=== PATIENT | male | born 1950 | race Caucasian/White ===

== ENCOUNTER 2017-06-23 14:16 | Inpatient (IN) | payer OTHER ==
[2017-06-23 14:32] VITALS: BMI 28.1
--- NOTE | 2017-06-23 14:33 | PDOC ---
Rapid Medical Evaluation Chief Complaint: Pain Time Seen by Provider: 06/23/17 14:29 Medical Evaluation: Allergies Allergy/AdvReac Type Severity Reaction Status Date / Time No Known Allergies Allergy Verified 01/03/14 01:26 06/23/17 14:29 The patient presents with a chief complaint of: hiccups since Thursday. States that he has thrown up because of them and complains of chest heaviness. Admits to lightheadedness. Denies fevers, chills, flu like symptoms. I have performed a brief in-person evaluation of this patient; Pertinent physical exam findings. Hiccups. CTAB, RRR I have ordered the following: CBC, CMP, PT/INR, Cardiac Profile, EKG, CXR The patient will proceed to the ED for further evaluation. Discharge Disposition - Referrals Referrals: Bert Mayo MD [Primary Care Provider] - - Patient Instructions - Post Discharge Activity
[2017-06-23 15:16] LABS: BASO % 0.4 % (0-2.0); EOS % 0.2 % (0-4.5); HEMATOCRIT 42.3 % (35.4-49); HEMOGLOBIN 14.1 GM/dL (11.7-16.9); LYMPH % 4.7 % (8-40); MCH 31.7 pg (25.7-33.7); MCHC 33.4 g/dl (32.0-35.9); MEAN CELL VOLUME 94.9 fl (80-96); MEAN PLT VOLUME 7.6 fl (7.5-11.1); MONO % 9.3 % (3.8-10.2); NEUT % 85.4 % (42.8-82.8); PLATELET COUNT 183 K/MM3 (134-434); RBC 4.46 M/mm3 (4.00-5.60); RDW 14.8 % (11.9-15.9); WHITE BLOOD COUNT 19.8 K/mm3 (4.0-10.0)
[2017-06-23 15:35] LABS: INR 0.99 (0.82-1.09); PROTHROMBIN TIME (PATIENT) 11.2 SEC (9.98-11.88)
[2017-06-23 15:42] LABS: ALBUMIN 3.4 g/dl (3.4-5.0); ALK PHOS 82 U/L (45-117); ANION GAP 10 (8-16); BLOOD UREA NITROGEN 45 mg/dL (7-18); CALCIUM 8.7 mg/dL (8.5-10.1); CHLORIDE 102 mmol/L (98-107); CO2 29 mmol/L (21-32); CREATININE 2.6 mg/dL (0.7-1.3); GLUCOSE,RANDOM 137 mg/dL (74-106); POTASSIUM 3.5 mmol/L (3.5-5.1); SGOT/AST 9 U/L (15-37); SGPT/ALT 14 U/L (12-78); SODIUM 141 mmol/L (136-145); TOT PROT 6.7 g/dl (6.4-8.2)
--- NOTE | 2017-06-23 17:36 | PDOC ---
History of Present Illness - General Chief Complaint: Pain Stated Complaint: Cold Symptoms/SICK/hiccups since Sat Time Seen by Provider: 06/23/17 14:29 - History of Present Illness Initial Comments: 06/23/17 17:29 Pt is a 66 y/o M with PMH BPH, HTN, [place] w/ stents 10 years ago, renal aneurysm s/ p surg 2 years ago (Dr. Rendon) who presents to ED with persistent hiccups since Thursday. Pt states he gets bouts of hiccups lasting up to an hour each every 30 min-1hr. Pt states he's never had this before. Pt has also had decreased appetite since the hiccups began and has had decreased BM (Per pt, he normally has 2-3 BM/day and has not moved his bowels since Sat). ROS otherwise negative. Past History - Past Medical History Allergies/Adverse Reactions: Allergies Allergy/AdvReac Type Severity Reaction Status Date / Time tetracycline Allergy Severe Swelling Verified 06/25/17 13:29 Home Medications: Ambulatory Orders Tamsulosin HCl [Flomax] 0.4 mg PO DAILY 01/03/14 Amlodipine Besylate [Norvasc -] 10 mg PO DAILY 06/23/17 Atenolol [Tenormin -] 37.5 mg PO DAILY 06/23/17 Atorvastatin Ca [Lipitor] 40 mg PO HS 06/23/17 Finasteride [Proscar -] 5 mg PO DAILY 06/23/17 Folic Acid - 1 mg PO DAILY 06/23/17 Sodium Bicarbonate - 650 mg PO DAILY 06/23/17 Cardiac Disorders: Yes (CAD) COPD: No Disorders: Yes (BPH) HTN: Yes Hypercholesterolemia: Yes - Surgical History Cardiac Surgery: Yes (stent) - Suicide/Smoking/Psychosocial Hx Smoking History: Never smoked Have you smoked in the past 12 months: Yes Information on smoking cessation initiated: No Hx Alcohol Use: No Drug/Substance Use Hx: No Substance Use Type: None Review of Systems - Review of Systems Able to Perform ROS?: Yes Is the patient limited Zimbabwean proficient: No Constitutional: Yes: Symptoms Reported. No: Chills, Diaphoresis, Fever HEENTM: Yes: Symptoms Reported. No: Double Vision, Nose Congestion, Hearing Loss, Throat Pain Respiratory: Yes: Symptoms reported, Other (hiccups). No: Cough, Shortness of Breath, Productive cough Cardiac (ROS): Yes: Symptoms Reported. No: Chest Pain, Edema, Irregular Heart Rate ABD/GI: Yes: Symptoms Reported, Vomiting (signle episode of vomiting occuring with hiccups). No: Abdominal Distended, Abd. Pain w/ defecation, Diarrhea, Nausea, Poor Appetite, Poor Fluid Intake : Yes: Symptoms Reported. No: Burning, Dysuria *Physical Exam - Vital Signs Last Vital Signs Temp Pulse Resp BP Pulse Ox 99.1 F 61 18 143/78 96 06/23/17 14:28 06/23/17 14:28 06/23/17 14:28 06/23/17 14:28 06/23/17 14:28 - Physical Exam General Appearance: Yes: Appropriately Dressed. No: Apparent Distress HEENT: positive: EOMI, JAME, Normal ENT Inspection Neck: positive: Supple. negative: Tender, Lymphadenopathy (R), Lymphadenopathy (L) Respiratory/Chest: positive: Lungs Clear, Normal Breath Sounds. negative: Chest Tender Cardiovascular: positive: Regular Rhythm, Regular Rate, S1, S2 Gastrointestinal/Abdominal: positive: Normal Bowel Sounds, Hernia (ventral hernia at suture line). negative: Tender Extremity: positive: Normal Inspection ED Treatment Course - LABORATORY CBC & Chemistry Diagram: 06/27/17 12:15 06/27/17 12:15 - ADDITIONAL ORDERS Additional order review: Laboratory Results 06/23/17 06/23/17 06/23/17 14:52 14:52 14:52 PT with INR 11.20 INR 0.99 Sodium 141 Potassium 3.5 Chloride 102 Carbon Dioxide 29 Anion Gap 10 BUN 45 H D Creatinine 2.6 H D Creat Clearance w eGFR 24.67 Random Glucose 137 H Calcium 8.7 Total Bilirubin 1.0 D AST 9 L D ALT 14 D Alkaline Phosphatase 82 Creatine Kinase 89 Troponin I 0.02 Total Protein 6.7 Albumin 3.4 06/23/17 14:52 RBC 4.46 D MCV 94.9 MCHC 33.4 RDW 14.8 MPV 7.6 D Neutrophils % 85.4 H D Lymphocytes % 4.7 L D Monocytes % 9.3 Eosinophils % 0.2 D Basophils % 0.4 Medical Decision Making - Medical Decision Making 06/23/17 17:40 Pt is a 66 y/o M who presents to ED with 2 days of intractable hiccups. Plan -Chlorpromazine *DC/Admit/Observation/Transfer Diagnosis at time of Disposition: Intractable hiccups, Pneumonia - Discharge Dispostion Condition at time of disposition: Stable - Referrals - Patient Instructions - Post Discharge Activity
--- NOTE | 2017-06-23 19:09 | PDOC ---
Attending Attestation - Resident Resident Name: Marshall Daigle - ED Attending Attestation I have performed the following: I have examined & evaluated the patient, The case was reviewed & discussed with the resident, I agree w/resident's findings & plan, Exceptions are as noted - HPI HPI: 06/23/17 20:43 Patient is a 66 year old male with a significant past medical history of HTN, BPH, DC, CAD s/p stent 10yrs ago, Hypercholesterolemia, and Renal Aneurysm s/p repair 2 years ago, who presents to the ED with complaints of persistent hiccups since thursday afternoon. Patient reports experience sudden onset of hiccups that he states lasts up to an hour at a time before relieving for 30 minutes. Patient states he has been experiencing decrease in appetite secondary to hiccups. and has rece Denies chest pain, SOB. Denies fevers, chills. Denies nausea, vomiting. Denies contact with sick individuals, out of state traveling. Denies any other symptoms. Allergies: None Social history: Former Smoker. Social drinker (1 beer per day). No illicit drugs. Surgical history: Cataracts, Cardiac Stent (10 years ago) PMD: Dr. Bert Mayo - Physicial Exam PE: 06/23/17 20:48 GENERAL: Awake, alert, and fully oriented, in no acute distress. Frequent hiccups. HEAD: No signs of trauma EYES: PERRLA, EOMI, sclera anicteric, conjunctiva clear ENT: Auricles normal inspection, hearing grossly normal, nares patent, oropharynx clear without exudates. Moist mucosa NECK: Normal ROM, supple, no lymphadenopathy, JVD, or masses LUNGS: Breath sounds equal, clear to auscultation bilaterally. No wheezes, and no crackles HEART: Regular rate and rhythm, normal S1 and S2, no murmurs, rubs or gallops ABDOMEN: Soft, nontender, normoactive bowel sounds. No guarding, no rebound. No masses EXTREMITIES: Normal range of motion, no edema. No clubbing or cyanosis. No cords, erythema, or tenderness NEUROLOGICAL: Normal speech, cranial nerves intact, negative pronator drift, 5/ 5 strength in all 4 extremities, normal sensation to light touch in all 4 extremities, normal cerebellar exam, normal gait, normal reflexes and tone SKIN: Warm, Dry, normal turgor, no rashes or lesions noted. - Medical Decision Making 06/23/17 20:49 66-year-old male with multiple medical problems including CAD with stents presents with hiccuping for 3 days as well as decreased appetite and transient lightheadedness. Patient initially reported chest pressure to the nurse practitioner in [facility], however currently denies. Vitals are unremarkable. Exam is unremarkable other than patient with frequent hiccuping. EKG with some concerning changes including a new bifascicular block. Differential includes but is not limited to acute coronary syndrome versus CHF versus pneumonia versus GERD. Labs remarkable for leukocytosis to 20, and a MANJULA with creatinine of 2.6 (from 2.1). Chest x-ray was unremarkable however CT of the chest reveals a lingular infiltrate, which possibly explains a leukocytosis and may explain the hiccups. BNP elevated to the 3000 range and therefore there might be some element of CHF. Given the infiltrate, and transient lightheadedness and chest pressure along with the patient's medical history, I recommended admission for observation. The patient is hesitant to be admitted since we do not have any beds to admit patient's to currently and that he would likely have to stay in the emergency department for at least several hours prior to getting a bed. For this reason, the patient does not want to be admitted. I told him that in this situation we will likely have to sign him out AGAINST MEDICAL ADVICE but that I would call his PMD Dr. Mayo and in the meantime give him a dose of IV antibiotics and check a second troponin. The patient agrees to stay for these studies and will decide whether he is willing to stay for an observation admission in the meantime. Patient has been signed out to Dr. Palmer for further evaluation and disposition. Heart Score/ECG Review - History History: Slightly suspicious - Electrocardiogram EKG: Non specific repolarization disturbance - Age Age: >/= 65 - Risk Factors Based on the list above the patient has:: >/=3 risk factors or Hx atherosclerotic disease - Troponin Troponin: </= normal limit - Score Heart Score - Total: 5 #1 06/23/17 21:03 Twelve-lead EKG was performed and reviewed by me. Normal sinus rhythm, rate 63. Left axis deviation. Right bundle branch block and left anterior fascicular block. Compared to previous EKG from 01/03/2014, the anterior fascicular block is new.
[2017-06-23] MEDS ORDERED: CEFTRIAXONE 1 GM in DEXTROSE 5%-WATER - 50 ML IVPB ONE (20:40)
[2017-06-23] MEDS ORDERED: AZITHROMYCIN IVPB 500 MG in DEXTROSE 5%-WATER - 250 ML IVPB ONE (20:40)
[2017-06-23] MEDS ORDERED: AZITHROMYCIN IVPB 250 ML IVPB ONE (21:10)
[2017-06-23] MEDS ORDERED: CEFTRIAXONE 1 GM/50 ML BAG ONE (21:11)
--- NOTE | 2017-06-24 02:58 | HP ---
CHIEF COMPLAINT: hiccups x 4 days PCP: Dr. Yasmany Mayo HISTORY OF PRESENT ILLNESS: 66 y/o M with PMHx HTN, HLD, BPH, [place] s/p stentx1, renal aneurysm s/p surgery, presented to ED with 4 days hx of intractable hiccups. He states he did not do anything to alleviate the hiccups. He also c/o decreased PO intake for last 4 days, associated with n/v. He states he vomits up both food and liquids but has not noticed any blood or dark coffee grounds in his vomit. He states he was light headed this morning but never fainted. He is able to ambulate on his own. He also has had dry cough for past 4 days. He denies any blurry vision, sore throat, chest pain, SOB, palpitations, dyspnea , orthopnea, abdominal pain. He has chronic nasal congestion and morning post nasal drip. He states his girlfriend was recently ill with a cold. He states he has had some intermittent chills but denies fever. He has been vaccinated for flu this year but has never received pneumonococcal vaccine. He reported weight change, 30 lb since quitting smoking 2 years ago. ER course was notable for: (1) CXR - no acute pathology (2)CT chest - lingula infiltrate (3) Ceftriaxone, Azithromycin (4) WBC 19.8 (5) BUN/Cr 45/2.6 (baseline Cr 2.1) Recent Travel: denies PAST MEDICAL HISTORY: HTN, HLD, BPH, [place] s/p stentx1, renal aneurysm s/p surgery PAST SURGICAL HISTORY: [place] s/p stent x1, u/l cataract surgery Social History: Smokin pack year (52 years, 1 ppd); quit 2 years ago Alcohol: socially in past; increased EtOH intake to 1-2 beers daily in past 8 mo. Drugs: Marijuana as kid; denies current use. Family History: Mom - at age 72 from [place]; Dad - at age 70, lung ca with mets to brain; Sister - kidney dz. Allergies Pt is allergic to tetramycin -- body swelling Allergic to shrimp HOME MEDICATIONS: Home Medications Medication Instructions Recorded Tamsulosin HCl [Flomax] 0.4 mg PO DAILY 01/03/14 Amlodipine Besylate [Norvasc -] 10 mg PO DAILY 06/23/17 Atenolol [Tenormin -] 37.5 mg PO DAILY 06/23/17 Atorvastatin Ca [Lipitor] 40 mg PO HS 06/23/17 Finasteride [Proscar -] 5 mg PO DAILY 06/23/17 Folic Acid - 1 mg PO DAILY 06/23/17 Sodium Bicarbonate - 650 mg PO DAILY 06/23/17 REVIEW OF SYSTEMS CONSTITUTIONAL: Absent: fever, chills, diaphoresis, generalized weakness, malaise, loss of appetite, weight change HEENT: Absent: rhinorrhea, nasal congestion, throat pain, throat swelling, difficulty swallowing, mouth swelling, ear pain, eye pain, visual changes CARDIOVASCULAR: Absent: chest pain, syncope, palpitations, irregular heart rate, lightheadedness , peripheral edema RESPIRATORY: Absent: cough, shortness of breath, dyspnea with exertion, orthopnea, wheezing, stridor, hemoptysis GASTROINTESTINAL: Absent: abdominal pain, abdominal distension, nausea, vomiting, diarrhea, constipation, melena, hematochezia GENITOURINARY: Absent: dysuria, frequency, urgency, hesitancy, hematuria, flank pain, genital pain MUSCULOSKELETAL: Absent: myalgia, arthralgia, joint swelling, back pain, neck pain SKIN: Absent: rash, itching, pallor HEMATOLOGIC/IMMUNOLOGIC: Absent: easy bleeding, easy bruising, lymphadenopathy, frequent infections ENDOCRINE: Absent: unexplained weight gain, unexplained weight loss, heat intolerance, cold intolerance NEUROLOGIC: Absent: headache, focal weakness or paresthesias, dizziness, unsteady gait, seizure, mental status changes, bladder or bowel incontinence PSYCHIATRIC: Absent: anxiety, depression, suicidal or homicidal ideation, hallucinations. PHYSICAL EXAMINATION Vital Signs - 24 hr 06/23/17 14:28 Temperature 99.1 F Pulse Rate 61 Respiratory 18 Rate Blood Pressure 143/78 O2 Sat by Pulse 96 Oximetry (%) GENERAL: Awake, alert, and fully oriented, in no acute distress. HEAD: Normal with no signs of trauma. EYES: Pupils equal, round and reactive to light, extraocular movements intact, sclera anicteric, conjunctiva clear. No lid lag. EARS, NOSE, THROAT: Ears normal, nares patent, oropharynx clear without exudates. Moist mucous membranes. NECK: Normal range of motion, supple without lymphadenopathy, JVD, or masses. LUNGS: Breath sounds equal, some crackles heard at R base. No accessory muscle use. HEART: Regular rate and rhythm, normal S1 and S2 without murmur, rub or gallop. Distant heart sounds. ABDOMEN: Soft, nontender, distended, normoactive bowel sounds, no guarding, no rebound, no masses. MUSCULOSKELETAL: Normal range of motion at all joints. No bony deformities or tenderness. UPPER EXTREMITIES: 2+ pulses, warm, well-perfused. No cyanosis. No clubbing. No peripheral edema. LOWER EXTREMITIES: 2+ pulses, warm, well-perfused. No calf tenderness. L leg edema +2. PSYCHIATRIC: Cooperative. Good eye contact. Appropriate mood and affect. SKIN: Warm, dry, normal turgor, no rashes or lesions noted, normal capillary refill. Laboratory Results - last 24 hr 06/23/17 06/23/17 06/23/17 14:52 14:52 14:52 WBC 19.8 H D RBC 4.46 D Hgb 14.1 D Hct 42.3 D MCV 94.9 MCH 31.7 D MCHC 33.4 RDW 14.8 Plt Count 183 D MPV 7.6 D Neutrophils % 85.4 H D Lymphocytes % 4.7 L D Monocytes % 9.3 Eosinophils % 0.2 D Basophils % 0.4 PT with INR 11.20 INR 0.99 Sodium 141 Potassium 3.5 Chloride 102 Carbon Dioxide 29 Anion Gap 10 BUN 45 H D Creatinine 2.6 H D Creat Clearance w eGFR 24.67 Random Glucose 137 H Calcium 8.7 Total Bilirubin 1.0 D AST 9 L D ALT 14 D Alkaline Phosphatase 82 Creatine Kinase Troponin I B-Natriuretic Peptide Total Protein 6.7 Albumin 3.4 06/23/17 06/23/17 06/23/17 14:52 18:45 21:48 WBC RBC Hgb Hct MCV MCH MCHC RDW Plt Count MPV Neutrophils % Lymphocytes % Monocytes % Eosinophils % Basophils % PT with INR INR Sodium Potassium Chloride Carbon Dioxide Anion Gap BUN Creatinine Creat Clearance w eGFR Random Glucose Calcium Total Bilirubin AST ALT Alkaline Phosphatase Creatine Kinase 89 Troponin I 0.02 0.02 B-Natriuretic Peptide 3096.25 H Total Protein Albumin CBC, [facility] 06/23/17 14:52 06/23/17 14:52 EKG:NSR bifasicular block QTC 433 CT CHEST- Lingular infilterate, mild fluid filled distension at level of thoracic esophagus, due to reflux vs. gastroparesis or gastric outlet obstruction ASSESSMENT/PLAN: 66 y/o M with PMHx HTN, HLD, BPH, [place] s/p stentx1, renal aneurysm s/p surgery, presented to ED with 4 days hx of intractable hiccups. Pt found to have lingual infiltrate and admitted to obs for CAP. # CAP Pneumonia * WBC 19.000 * CXR negative * CT chest lingual infiltrate * Ceftriaxone , Azithromycin in ED * continue Azithromycin 500 mg daily , ceftriaxone 1 gm daily * Urine legionella AG * Influenza A,B swap positive for A, start oseltamivir * repeat CBC, CMP * Chlorpromazine for intractable hiccups * Respiratory isolation precautions # Intractable Hiccup , * Likely 2/2 CAP * start on chlorpromazine * #Influenza A + * Tamiflu 30 qd renally doses # MANJULA on CKD * BUN/Cr 45/2.6 (base line 2.1 ) * IV fluids 250 NS bolus * Urine lytes * Avoid nephrotoxic agents * Trend BUN/Cr # HTN * controlled * continue home meds Norvasc 10 daily , Atenolol # HLD * Continue Lipitor 40 mg PO daily #BPH * continue home meds * Flomax 0.4 po daily , * # Urinary retention * continue Finasteride 5 mg PO daily #FEN * F: NS 250 bolus * E: MANJULA , monitor * N: low sodium low fat diet # Proph * DVT : SCDS , heparin 5000 Q8hr , Echo to R/O DVT # Dispo * Admit to obs * Full code Visit type - Emergency Visit Emergency Visit: Yes ED Registration Date: 06/24/17 Care time: The patient presented to the Emergency Department on the above date and was hospitalized for further evaluation of their emergent condition. - New Patient This patient is new to me today: Yes Date on this admission: 06/24/17 - Critical Care Critical Care patient: No
--- NOTE | 2017-06-24 03:09 | PDOC ---
*Physical Exam - Vital Signs Last Vital Signs Temp Pulse Resp BP Pulse Ox 99.1 F 61 18 143/78 96 06/23/17 14:28 06/23/17 14:28 06/23/17 14:28 06/23/17 14:28 06/23/17 14:28 ED Treatment Course - LABORATORY CBC & Chemistry Diagram: 06/23/17 14:52 06/23/17 14:52 - ADDITIONAL ORDERS Additional order review: Laboratory Results 06/23/17 06/23/17 06/23/17 21:48 18:45 14:52 PT with INR INR Sodium Potassium Chloride Carbon Dioxide Anion Gap BUN Creatinine Creat Clearance w eGFR Random Glucose Calcium Total Bilirubin AST ALT Alkaline Phosphatase Creatine Kinase 89 Troponin I 0.02 0.02 B-Natriuretic Peptide 3096.25 H Total Protein Albumin 06/23/17 06/23/17 14:52 14:52 PT with INR 11.20 INR 0.99 Sodium 141 Potassium 3.5 Chloride 102 Carbon Dioxide 29 Anion Gap 10 BUN 45 H D Creatinine 2.6 H D Creat Clearance w eGFR 24.67 Random Glucose 137 H Calcium 8.7 Total Bilirubin 1.0 D AST 9 L D ALT 14 D Alkaline Phosphatase 82 Creatine Kinase Troponin I B-Natriuretic Peptide Total Protein 6.7 Albumin 3.4 06/23/17 14:52 RBC 4.46 D MCV 94.9 MCHC 33.4 RDW 14.8 MPV 7.6 D Neutrophils % 85.4 H D Lymphocytes % 4.7 L D Monocytes % 9.3 Eosinophils % 0.2 D Basophils % 0.4 - Medications Given in the ED: ED Medications Discontinued Medications Generic Name Dose Route Start Last Admin Trade Name Antonietta PRN Reason Stop Dose Admin Azithromycin 500 mg/ Dextrose 250 mls @ 250 mls/hr 06/23/17 20:40 06/23/17 22 :41 IVPB 06/23/17 21:39 250 mls/hr ONCE ONE Administration Ceftriaxone Sodium 1 gm/ 50 mls @ 100 mls/hr 06/23/17 20:40 06/23/17 21:36 Dextrose IVPB 06/23/17 21:09 100 mls/hr ONCE ONE Administration Medical Decision Making - Medical Decision Making 06/24/17 03:11 Pt still having hiccups despite treatment of pneumonia. Will admit to [facility] Obs *DC/Admit/Observation/Transfer Diagnosis at time of Disposition: Intractable hiccups Pneumonia Qualifiers: Laterality: left Lung location: lower lobe of lung - Discharge Dispostion Condition at time of disposition: Stable Admit: Yes - Referrals Referrals: Bert Mayo MD [Primary Care Provider] - - Patient Instructions - Post Discharge Activity
[2017-06-24] MEDS ORDERED: chlorproMAZINE HCL 25 MG TABLET PO STA (03:10)
--- NOTE | 2017-06-24 03:52 | PN ---
Teaching Attending Note Name of Resident: Luis Gunn ATTENDING PHYSICIAN STATEMENT I saw and evaluated the patient. I reviewed the resident's note and discussed the case with the resident. I agree with the resident's findings and plan as documented. SUBJECTIVE: 66 M with pmhx. of HTN, BPH, [place], CAD s/p Stent 10 years ago, HLD, CKD, with renal aneurysm s/p repair 2 years ago, who presents with hiccups since Thursday. States that hiccups have been consistant. Notes he has had a decreased appetite secondary to hiccups. No fevers or chills. No chest pain or pressure. No nausea, vomiting, or diarrhea. OBJECTIVE: PHYSICAL: VS: Vital Signs Period Temp Pulse Resp BP Sys/Juan Pulse Ox Last 24 Hr 99.1 F 61 18 143/78 96 GEN: NAD, resting in bed, AA0X3 HEENT: NCAT, PERRL, throat without erythema or exudates CARD: RRR S1, S2 RESP: Crackles L. base ABD: BSx3, NTD to palpation EXT: LLE +2 Pitting edema CBCD WBC 19.8 K/mm3 (4.0-10.0) H D 06/23/17 14:52 RBC 4.46 M/mm3 (4.00-5.60) D 06/23/17 14:52 Hgb 14.1 GM/dL (11.7-16.9) D 06/23/17 14:52 Hct 42.3 % (35.4-49) D 06/23/17 14:52 MCV 94.9 fl (80-96) 06/23/17 14:52 MCHC 33.4 g/dl (32.0-35.9) 06/23/17 14:52 RDW 14.8 % (11.9-15.9) 06/23/17 14:52 Plt Count 183 K/MM3 (134-434) D 06/23/17 14:52 MPV 7.6 fl (7.5-11.1) D 06/23/17 14:52 CMP Sodium 141 mmol/L (136-145) 06/23/17 14:52 Potassium 3.5 mmol/L (3.5-5.1) 06/23/17 14:52 Chloride 102 mmol/L (98-107) 06/23/17 14:52 Carbon Dioxide 29 mmol/L (21-32) 06/23/17 14:52 Anion Gap 10 (8-16) 06/23/17 14:52 BUN 45 mg/dL (7-18) H D 06/23/17 14:52 Creatinine 2.6 mg/dL (0.7-1.3) H D 06/23/17 14:52 Creat Clearance w eGFR 24.67 (>60) 06/23/17 14:52 Random Glucose 137 mg/dL (74-106) H 06/23/17 14:52 Calcium 8.7 mg/dL (8.5-10.1) 06/23/17 14:52 Total Bilirubin 1.0 mg/dL (0.2-1.0) D 06/23/17 14:52 AST 9 U/L (15-37) L D 06/23/17 14:52 ALT 14 U/L (12-78) D 06/23/17 14:52 Alkaline Phosphatase 82 U/L (45-117) 06/23/17 14:52 Total Protein 6.7 g/dl (6.4-8.2) 06/23/17 14:52 Albumin 3.4 g/dl (3.4-5.0) 06/23/17 14:52 CARDIAC ENZYMES Creatine Kinase 89 IU/L (39-308) 06/23/17 14:52 Troponin I 0.02 ng/ml (0.00-0.05) 06/23/17 21:48 Ambulatory Orders Tamsulosin HCl [Flomax] 0.4 mg PO DAILY 01/03/14 Amlodipine Besylate [Norvasc -] 10 mg PO DAILY 06/23/17 Atenolol [Tenormin -] 37.5 mg PO DAILY 06/23/17 Atorvastatin Ca [Lipitor] 40 mg PO HS 06/23/17 Finasteride [Proscar -] 5 mg PO DAILY 06/23/17 Folic Acid - 1 mg PO DAILY 06/23/17 Sodium Bicarbonate - 650 mg PO DAILY 06/23/17 EKG:NSR bifasicular block QTC 433 CT CHEST- Lingular infilterate, mild fluid filled distension at level of thoracic esophagus, due to reflux vs. gastroparesis or gastric outlet obstruction ASSESSMENT AND PLAN: 66 M with pmhx. of HTN, BPH, [place], CAD s/p Stent 10 years ago, HLD, CKD, with renal aneurysm s/p repair 2 years ago, who presents with intractable hiccups, being admitted for a community aquired pneumonia 1.) Intractable Hiccups - Most likley due to Community Aquired Pneumonia - Ceftriaxone/Azithromycin - Urine Ags - Chlorpromazine for hiccups 2.) Influenza A + - Tamiflu 30 qd renally doses 2.) ARF/CKD- Unknown recent baseline - U Lytes - If Pre-renal, fluid challenge - Avoid Nephrotoxins 3.) CAD - Unsure of why pt. is not on ASA - C/W Home meds 4.) HLD - C/W Statin 5.) Dvt Ppx - Heparin [address] in Obs
[2017-06-24] MEDS ORDERED: SODIUM CHLORIDE 250 ML IV STA (04:02)
[2017-06-24] MEDS ORDERED: OSELTAMIVIR PHOSPHATE 75 MG CAPSULE PO ONE (04:49)
[2017-06-24] MEDS ORDERED: OSELTAMIVIR PHOSPHATE 75 MG CAPSULE ONE (04:55)
[2017-06-24] MEDS: OSELTAMIVIR PHOSPHATE 30 MG CAPSULE PO ONE ×3 (04:59→05:13)
[2017-06-24] MEDS ORDERED: HEPARIN NA (PORCINE) 5,000 UNITS/ML 1ML VIAL ONE ×2 (06:14→23:08)
[2017-06-24] MEDS: HEPARIN NA (PORCINE) 5,000 UNITS/ML 1ML VIAL SQ SCH ×3 (06:24→23:09)
[2017-06-24] MEDS: TAMSULOSIN HCL 0.4 MG CAP.ER.24H (FP) PO SCH (09:14)
[2017-06-24] MEDS ORDERED: TAMSULOSIN HCL 0.4 MG CAP.ER.24H (FP) ONE (09:14)
--- NOTE | 2017-06-24 09:29 | EKG ---
Test Reason : Blood Pressure : / mmHG Vent. Rate : 063 BPM Atrial Rate : 063 BPM P-R Int : 128 ms QRS Dur : 140 ms QT Int : 424 ms P-R-T Axes : 028 -48 092 degrees QTc Int : 433 ms NORMAL SINUS RHYTHM RIGHT BUNDLE BRANCH BLOCK LEFT ANTERIOR FASCICULAR BLOCK BIFASCICULAR BLOCK VOLTAGE CRITERIA FOR LEFT VENTRICULAR HYPERTROPHY ABNORMAL ECG WHEN COMPARED WITH ECG OF 03-JAN-2014 01:38, PREMATURE ATRIAL COMPLEXES ARE NO LONGER PRESENT T WAVE INVERSION LESS EVIDENT IN ANTEROLATERAL LEADS Confirmed by TYRA DONNELLY, TALHA ([id number]) on 06/24/2017 9:28:59 AM Referred By: Confirmed By:TALHA MARY MD
[2017-06-24 09:43] LABS: BASO % 0.5 % (0-2.0); EOS % 0.1 % (0-4.5); HEMATOCRIT 46.4 % (35.4-49); HEMOGLOBIN 15.1 GM/dL (11.7-16.9); LYMPH % 4.2 % (8-40); MCH 31.1 pg (25.7-33.7); MCHC 32.6 g/dl (32.0-35.9); MEAN CELL VOLUME 95.6 fl (80-96); MEAN PLT VOLUME 7.3 fl (7.5-11.1); MONO % 10.7 % (3.8-10.2); NEUT % 84.5 % (42.8-82.8); PLATELET COUNT 185 K/MM3 (134-434); RBC 4.86 M/mm3 (4.00-5.60); RDW 14.8 % (11.9-15.9); WHITE BLOOD COUNT 19.1 K/mm3 (4.0-10.0)
[2017-06-24] MEDS ORDERED: AZITHROMYCIN IVPB 500 MG in DEXTROSE 5%-WATER - 250 ML IVPB SCH (10:00)
[2017-06-24] MEDS ORDERED: amLODIPine BESYLATE 10 MG TABLET (FP) PO SCH (10:00)
[2017-06-24] MEDS ORDERED: CEFTRIAXONE 1 GM in DEXTROSE 5%-WATER - 50 ML IVPB SCH (10:00)
[2017-06-24 10:18] LABS: ALBUMIN 3.4 g/dl (3.4-5.0); ANION GAP 10 (8-16); BILIRUBIN,TOTAL 1.7 mg/dL (0.2-1.0); BLOOD UREA NITROGEN 51 mg/dL (7-18); CALCIUM 8.5 mg/dL (8.5-10.1); CHLORIDE 98 mmol/L (98-107); CO2 31 mmol/L (21-32); GLUCOSE,RANDOM 151 mg/dL (74-106); POTASSIUM 3.2 mmol/L (3.5-5.1); SGOT/AST 8 U/L (15-37); SGPT/ALT 13 U/L (12-78); SODIUM 139 mmol/L (136-145); TOT PROT 6.8 g/dl (6.4-8.2)
[2017-06-24 10:19] LABS: ALK PHOS 79 U/L (45-117)
[2017-06-24] MEDS: FINASTERIDE 5 MG TABLET (FP) PO SCH (10:35)
[2017-06-24] MEDS: ATENOLOL 25 MG TABLET (FP) PO SCH (10:35)
[2017-06-24] MEDS: amLODIPine BESYLATE 10 MG TABLET (FP) PO SCH (10:35)
[2017-06-24] MEDS: SODIUM BICARBONATE 650 MG TABLET PO SCH (10:35)
[2017-06-24] MEDS: FOLIC ACID 1 MG TABLET (FP) PO SCH (10:35)
[2017-06-24] MEDS ORDERED: POTASSIUM CHLORIDE TABS 20 MEQ TABLET.ER (FP) PO ONE ×4 (13:29→23:01)
[2017-06-24] MEDS ORDERED: SODIUM CHLORIDE 1,000 ML IV SCH (14:00)
[2017-06-24] MEDS ORDERED: PANTOPRAZOLE 40 MG TABLET (FP) ONE (15:09)
[2017-06-24] MEDS: PANTOPRAZOLE 40 MG TABLET (FP) PO SCH (15:24)
--- NOTE | 2017-06-24 16:13 | PN ---
Teaching Attending Note Name of Resident: Keith Ferris ATTENDING PHYSICIAN STATEMENT I saw and evaluated the patient. I reviewed the resident's note and discussed the case with the resident. I agree with the resident's findings and plan as documented. SUBJECTIVE: No fever or chills , still has the Hiccups . no SOB, reprots green sputum and cough t OBJECTIVE: NAD CV: RRR Lungs: CTAB Ext: no edema Lungs: crackles at middle L lung ASSESSMENT AND PLAN: 66 y/o man with h/o HTN, HLD, BPH, CAD s/p [place] s/p stentx1, renal aneurysm s/p surgery who presented with Hiccups, SOB, cough and sputum production and was found to have CAP and Flu A 1- Flu A : cont tamiflu 30 daily x 5 days . dose adjusted for renal function 2- CAP : - cont Azithro and ceftriaxone . - send blood cx and sputum cx - if condition worsens , then might need to add staph coverage 3- MANJULA on CKD : likely due to prerenal azotemia in setting of decreased po intake , and vomiting. cr was 2.1 in 2014 - start IVF - renal US - urine electrolytes. 4- Hiccups: likely due to distended stomach and esophagus . etiology of distention is not clear. - GI consult - add PPI 5- DVT PX
[2017-06-24] MEDS ORDERED: ONDANSETRON 4 MG/2 ML VIAL IVPB ONE (16:15)
--- NOTE | 2017-06-24 17:45 | PN ---
Physical Exam: SUBJECTIVE: Patient seen and examined No acute events overnight. Pt reports persistent hiccups and painful heartburn. He endorses one episode of emesis after a series of hiccups. He denies fevers, chills, chest pain, SOB, abdominal pain, nausea, diarrhea, constipation, and dysuria. OBJECTIVE: Vital Signs Period Temp Pulse Resp BP Sys/Juan Pulse Ox Last 24 Hr 99.2 F 72-80 16-20 123-136/75-77 92-98 GENERAL: The patient is awake, alert, and fully oriented, in no acute distress. HEENT: NC, AT NECK: Trachea midline, full range of motion, supple. LUNGS: left sided rales at mid-lung HEART: Regular rate and rhythm, S1, S2 without murmur, rub or gallop. ABDOMEN: midline scar, obese abdomen, normoactive BS, soft, NT EXTREMITIES: 2+ pulses, warm, well-perfused, no edema. NEUROLOGICAL: Cranial nerves II through XII grossly intact. Normal speech, gait not observed. Laboratory Results - last 24 hr 06/23/17 06/23/17 06/24/17 18:45 21:48 09:38 WBC 19.1 H RBC 4.86 Hgb 15.1 Hct 46.4 MCV 95.6 MCH 31.1 MCHC 32.6 RDW 14.8 Plt Count 185 MPV 7.3 L Neutrophils % 84.5 H Lymphocytes % 4.2 L Monocytes % 10.7 H Eosinophils % 0.1 Basophils % 0.5 Sodium Potassium Chloride Carbon Dioxide Anion Gap BUN Creatinine Creat Clearance w eGFR Random Glucose Calcium Total Bilirubin AST ALT Alkaline Phosphatase Troponin I 0.02 B-Natriuretic Peptide 3096.25 H Total Protein Albumin 06/24/17 09:38 WBC RBC Hgb Hct MCV MCH MCHC RDW Plt Count MPV Neutrophils % Lymphocytes % Monocytes % Eosinophils % Basophils % Sodium 139 Potassium 3.2 L Chloride 98 Carbon Dioxide 31 Anion Gap 10 BUN 51 H Creatinine 3.0 H Creat Clearance w eGFR 20.91 Random Glucose 151 H Calcium 8.5 Total Bilirubin 1.7 H D AST 8 L ALT 13 Alkaline Phosphatase 79 Troponin I B-Natriuretic Peptide Total Protein 6.8 Albumin 3.4 Active Medications Generic Name Dose Route Start Last Admin Trade Name Freq PRN Reason Stop Dose Admin Amlodipine Besylate 10 mg 06/24/17 10:00 06/24/17 10:35 Norvasc - PO 10 mg DAILY DAVID Administration Atenolol 37.5 mg 06/24/17 10:00 06/24/17 10:35 Tenormin - PO 37.5 mg DAILY DAVID Administration Atorvastatin Calcium 40 mg 06/24/17 22:00 Lipitor - PO HS DAVID Finasteride 5 mg 06/24/17 10:00 06/24/17 10:35 Proscar - PO 5 mg DAILY DAVID Administration Folic Acid 1 mg 06/24/17 10:00 06/24/17 10:35 Folic Acid - PO 1 mg DAILY DAVID Administration Heparin Sodium (Porcine) 5,000 unit 06/24/17 06:00 06/24/17 15:23 Heparin - SQ 5,000 unit TID DAVID Administration CEFTRIAXONE 1 G/50 ML PREMIX 50 mls @ 100 mls/hr 06/24/17 21:00 Ceftriaxone 1 Gm-D5w Bag IVPB DAILY DAVID Azithromycin 500 mg/ Dextrose 250 mls @ 250 mls/hr 06/24/17 22:00 IVPB DAILY@2200 DAVID Sodium Chloride 1,000 mls @ 50 mls/hr 06/24/17 14:00 06/24/17 15:24 Normal Saline - IV 06/25/17 13:56 50 mls/hr ASDIR DAVID Administration Oseltamivir Phosphate 30 mg 06/26/17 05:00 Tamiflu - PO 07/01/17 04:59 Q48H DAVID Pantoprazole Sodium 40 mg 06/24/17 12:15 06/24/17 15:24 Protonix - PO 40 mg DAILY DAVID Administration Sodium Bicarbonate 650 mg 06/24/17 10:00 06/24/17 10:35 Sodium Bicarbonate - PO 650 mg DAILY DAVID Administration Tamsulosin HCl 0.4 mg 06/24/17 08:30 06/24/17 09:14 Flomax - PO 0.4 mg DAILY@0830 DAVID Administration ASSESSMENT/PLAN: 66M with PMHx of HTN, HLD, BPH, [place] s/p stentx1, and renal aneurysm s/p surgery who presented with acute intractable hiccups, found to have a lingular infiltrate and leukocytosis, admitted to obs for CAP # CAP * CT chest: lingular infiltrate * continue Ceftriaxone and Azithromycin (day 2 of abx) * f/u Urine legionella and strep pneumo Ag * leukocytosis: 19.8 --> 19 * moinitor temps and wbc counts # Intractable Hiccups * 2/2 CAP vs. GI etiology * CT chest: mild fluid-filled distention of thoracic esophagus 2/2 reflux vs. gastroparesis or gastric outlet obstruction * GI consulted, f/u recs #Heartburn * start protonix #Influenza A + * continue Tamiflu 30 q48h, renally dosed * Respiratory isolation precautions # MANJULA on CKD * creatinine: 2.6 --> 3 (baseline 2.1 in 2013). pt euvolemic, will give NS @ 50cc/hr and reassess creatinine * f/u urine lytes * f/u renal US * Avoid nephrotoxic agents * Trend creatinine * Pt's PCP called whose office stated that they don't have the pt on record. More recent baseline creatinine unable to be obtained. #elevated total bilirubin * f/u direct bili * trend bili # HTN * controlled * continue home norvasc and atenolol # HLD * Continue home Lipitor 40 mg PO daily #BPH * continue home Flomax and finasteride #FEN * F: NS @50 * E: K repleted * N: low sodium low fat diet * DVT: heparin 5000 Q8hr * GI: protonix Case discussed with attending, Dr. Lau. -Keith Ferris MD PGY1 Visit type - Emergency Visit Emergency Visit: Yes ED Registration Date: 06/24/17 Care time: The patient presented to the Emergency Department on the above date and was hospitalized for further evaluation of their emergent condition. - New Patient This patient is new to me today: Yes Date on this admission: 06/25/17 - Critical Care Critical Care patient: No
[2017-06-24] MEDS ORDERED: CEFTRIAXONE 1 GM/50 ML BAG ONE (22:31)
[2017-06-24] MEDS ORDERED: AZITHROMYCIN IVPB 250 ML IVPB ONE (22:31)
[2017-06-24] MEDS: CEFTRIAXONE 1 G/50 ML PREMIX 50 ML IVPB SCH (22:38)
[2017-06-24] MEDS ORDERED: ATORVASTATIN CA 40 MG TABLET (FP) ONE (23:01)
[2017-06-24] MEDS: ATORVASTATIN CA 40 MG TABLET (FP) PO SCH (23:09)
[2017-06-24] MEDS: AZITHROMYCIN IVPB 500 MG in DEXTROSE 5%-WATER - 250 ML IVPB SCH (23:09)
--- NOTE | 2017-06-25 04:27 | PN ---
Physical Exam: SUBJECTIVE: Patient seen and examined. OBJECTIVE: Vital Signs Period Temp Pulse Resp BP Sys/Juan Pulse Ox Last 24 Hr 98.6 F-99.2 F 72-80 16-20 123-136/75-82 92-98 GENERAL: The patient is awake, alert, and fully oriented, in no acute distress. HEENT: NC, AT NECK: Trachea midline, full range of motion, supple. LUNGS: left sided rales at mid-lung HEART: Regular rate and rhythm, S1, S2 without murmur, rub or gallop. ABDOMEN: midline scar, obese abdomen, normoactive BS, soft, NT EXTREMITIES: 2+ pulses, warm, well-perfused, no edema. NEUROLOGICAL: Cranial nerves II through XII grossly intact. Normal speech, gait not observed. Laboratory Results - last 24 hr 06/24/17 06/24/17 06/24/17 09:38 09:38 20:43 WBC 19.1 H RBC 4.86 Hgb 15.1 Hct 46.4 MCV 95.6 MCH 31.1 MCHC 32.6 RDW 14.8 Plt Count 185 MPV 7.3 L Neutrophils % 84.5 H Lymphocytes % 4.2 L Monocytes % 10.7 H Eosinophils % 0.1 Basophils % 0.5 Sodium 139 Potassium 3.2 L Chloride 98 Carbon Dioxide 31 Anion Gap 10 BUN 51 H Creatinine 3.0 H Creat Clearance w eGFR 20.91 Random Glucose 151 H Calcium 8.5 Total Bilirubin 1.7 H D AST 8 L ALT 13 Alkaline Phosphatase 79 Total Protein 6.8 Albumin 3.4 Ur Random Sodium 18 Ur Random Potassium 61.4 Ur Random Chloride 19 Active Medications Generic Name Dose Route Start Last Admin Trade Name Freq PRN Reason Stop Dose Admin Amlodipine Besylate 10 mg 06/24/17 10:06/24/17 10:35 Norvasc - PO 10 mg DAILY DAVID Administration Atenolol 37.5 mg 06/24/17 10:00 06/24/17 10:35 Tenormin - PO 37.5 mg DAILY DAVID Administration Atorvastatin Calcium 40 mg 06/24/17 22:00 06/24/17 23:09 Lipitor - PO 40 mg HS DAVID Administration Finasteride 5 mg 06/24/17 10:00 06/24/17 10:35 Proscar - PO 5 mg DAILY DAVID Administration Folic Acid 1 mg 06/24/17 10:00 06/24/17 10:35 Folic Acid - PO 1 mg DAILY DAVID Administration Heparin Sodium (Porcine) 5,000 unit 06/24/17 06:00 06/24/17 23:09 Heparin - SQ 5,000 unit TID DAVID Administration CEFTRIAXONE 1 G/50 ML PREMIX 50 mls @ 100 mls/hr 06/24/17 21:00 06/24/17 22: 38 Ceftriaxone 1 Gm-D5w Bag IVPB 100 mls/hr DAILY DAVID Administration Azithromycin 500 mg/ Dextrose 250 mls @ 250 mls/hr 06/24/17 22:00 06/24/17 23 :09 IVPB 250 mls/hr DAILY@2200 DAVID Administration Sodium Chloride 1,000 mls @ 50 mls/hr 06/24/17 14:00 06/24/17 15:24 Normal Saline - IV 06/25/17 13:56 50 mls/hr ASDIR DAVID Administration Oseltamivir Phosphate 30 mg 06/26/17 05:00 Tamiflu - PO 07/01/17 04:59 Q48H DAVID Pantoprazole Sodium 40 mg 06/24/17 12:15 06/24/17 15:24 Protonix - PO 40 mg DAILY DAVID Administration Sodium Bicarbonate 650 mg 06/24/17 10:00 06/24/17 10:35 Sodium Bicarbonate - PO 650 mg DAILY DAVID Administration Tamsulosin HCl 0.4 mg 06/24/17 08:30 06/24/17 09:14 Flomax - PO 0.4 mg DAILY@0830 DAVID Administration ASSESSMENT/PLAN: 66M with PMHx of HTN, HLD, BPH, [place] s/p stentx1, and renal aneurysm s/p surgery who presented with acute intractable hiccups, found to have a lingular infiltrate and leukocytosis, admitted to obs for CAP # CAP * CT chest: lingular infiltrate * continue Ceftriaxone and Azithromycin (day 2 of abx) * f/u Urine legionella and strep pneumo Ag * leukocytosis: 19.8 --> 19 * moinitor temps and wbc counts # Intractable Hiccup * 2/2 CAP vs. GI etiology * CT chest: mild fluid-filled distention of thoracic esophagus 2/2 reflux vs. gastroparesis or gastric outlet obstruction * GI consulted, f/u recs #Heartburn * start protonix #Influenza A + * continue Tamiflu 30 q48h, renally dosed * Respiratory isolation precautions # MANJULA on CKD * creatinine: 2.6 --> 3 (baseline 2.1 in 2013). pt euvolemic, will give NS @ 50cc/hr and reassess creatinine * f/u urine lytes * f/u renal US * Avoid nephrotoxic agents * Trend creatinine * Pt's PCP called whose office stated that they don't have the pt on record. More recent baseline creatinine unable to be obtained. # HTN * controlled * continue home norvasc and atenolol # HLD * Continue home Lipitor 40 mg PO daily #BPH * continue home Flomax and finasteride #FEN * F: NS @50 * E: K repleted * N: low sodium low fat diet * DVT: heparin 5000 Q8hr * GI: protonix Case discussed with attending, Dr. Lau. -Keith Ferris MD PGY1 Visit type - Emergency Visit Emergency Visit: Yes ED Registration Date: 06/24/17 Care time: The patient presented to the Emergency Department on the above date and was hospitalized for further evaluation of their emergent condition. - New Patient This patient is new to me today: Yes Date on this admission: 06/25/17 - Critical Care Critical Care patient: No
[2017-06-25 07:58] LABS: BASO % 0.3 % (0-2.0); EOS % 0.8 % (0-4.5); HEMATOCRIT 40.1 % (35.4-49); HEMOGLOBIN 13.2 GM/dL (11.7-16.9); LYMPH % 11.2 % (8-40); MCH 31.3 pg (25.7-33.7); MCHC 32.8 g/dl (32.0-35.9); MEAN CELL VOLUME 95.3 fl (80-96); MONO % 10.1 % (3.8-10.2); NEUT % 77.6 % (42.8-82.8); PLATELET COUNT 169 K/MM3 (134-434); RDW 14.4 % (11.9-15.9); WHITE BLOOD COUNT 13.2 K/mm3 (4.0-10.0)
[2017-06-25 08:23] LABS: CHLORIDE 103 mmol/L (98-107); POTASSIUM 3.4 mmol/L (3.5-5.1); SODIUM 139 mmol/L (136-145)
[2017-06-25 08:30] LABS: ALBUMIN 2.8 g/dl (3.4-5.0); ALK PHOS 62 U/L (45-117); ANION GAP 10 (8-16); BILIRUBIN,DIRECT 0.3 mg/dL (0.0-0.2); BILIRUBIN,TOTAL 0.8 mg/dL (0.2-1.0); BLOOD UREA NITROGEN 77 mg/dL (7-18); CALCIUM 7.2 mg/dL (8.5-10.1); CO2 26 mmol/L (21-32); CREATININE 2.7 mg/dL (0.7-1.3); GLUCOSE,RANDOM 100 mg/dL (74-106); SGOT/AST 9 U/L (15-37); SGPT/ALT 12 U/L (12-78); TOT PROT 5.7 g/dl (6.4-8.2)
[2017-06-25] MEDS ORDERED: SODIUM CHLORIDE 1,000 ML IV SCH ×2 (08:43→10:21)
[2017-06-25] MEDS ORDERED: POTASSIUM CHLORIDE TABS 20 MEQ TABLET.ER (FP) PO ONE ×2 (09:00→13:00)
[2017-06-25] MEDS: HEPARIN NA (PORCINE) 5,000 UNITS/ML 1ML VIAL SQ SCH ×3 (09:51→23:50)
[2017-06-25] MEDS: TAMSULOSIN HCL 0.4 MG CAP.ER.24H (FP) PO SCH (09:51)
[2017-06-25] MEDS: FOLIC ACID 1 MG TABLET (FP) PO SCH (09:59)
[2017-06-25] MEDS: PANTOPRAZOLE 40 MG TABLET (FP) PO SCH (09:59)
[2017-06-25] MEDS: amLODIPine BESYLATE 10 MG TABLET (FP) PO SCH (09:59)
[2017-06-25] MEDS: FINASTERIDE 5 MG TABLET (FP) PO SCH (09:59)
[2017-06-25] MEDS: ATENOLOL 25 MG TABLET (FP) PO SCH (10:00)
[2017-06-25] MEDS ORDERED: OSELTAMIVIR PHOSPHATE 30 MG CAPSULE PO SCH (10:00)
[2017-06-25] MEDS: SODIUM BICARBONATE 650 MG TABLET PO SCH (10:00)
[2017-06-25] MEDS: CEFTRIAXONE 1 G/50 ML PREMIX 50 ML IVPB SCH (10:30)
[2017-06-25] MEDS: SUCRALFATE 1 GM/10 ML UNIT DOSE CUPS PO SCH ×2 (11:50→14:00)
--- NOTE | 2017-06-25 11:51 | CON.GI ---
Consult Consult Specialty:: GI Reason for Consultation:: abnormal CT chest - History of Present Illness History of Present Illness: Chart reviewed. Events noted. A 66yom admitted for PNA. Noted to have abnormal CT of the chest suggesting gastric outflow obstruction. Pt reports intractable hiccups sine Thursday with one episode of vomiting. No bms until this am. Not in pain, or distress. Deneis nausea. Not hungry. No melena, hematochezia, hematemesis. Has history of abdominal surgery. - History Source History Provided By: Patient, Medical Record - Alcohol/Substance Use Hx Alcohol Use: No - Smoking History Smoking history: Never smoked Have you smoked in the past 12 months: Yes Home Medications - Allergies Allergies/Adverse Reactions: Allergies Allergy/AdvReac Type Severity Reaction Status Date / Time No Known Allergies Allergy Verified 01/03/14 01:26 - Home Medications Home Medications: Ambulatory Orders Tamsulosin HCl [Flomax] 0.4 mg PO DAILY 01/03/14 Amlodipine Besylate [Norvasc -] 10 mg PO DAILY 06/23/17 Atenolol [Tenormin -] 37.5 mg PO DAILY 06/23/17 Atorvastatin Ca [Lipitor] 40 mg PO HS 06/23/17 Finasteride [Proscar -] 5 mg PO DAILY 06/23/17 Folic Acid - 1 mg PO DAILY 06/23/17 Sodium Bicarbonate - 650 mg PO DAILY 06/23/17 Family Disease History - Family Disease History Family History: Unremarkable (non-contributory) Review of Systems Findings/Remarks: As per H&P and HPI Physical Exam-GI Vital Signs: Vital Signs Temperature 97.2 F L 06/25/17 08:48 Pulse Rate 58 L 06/25/17 08:48 Respiratory Rate 20 06/25/17 08:48 Blood Pressure 133/78 06/25/17 08:48 O2 Sat by Pulse Oximetry (%) 99 06/25/17 06:54 Constitutional: Yes: No Distress, Calm Eyes: Yes: Conjunctiva Clear HENT: Yes: Atraumatic Neck: Yes: Supple Cardiovascular: Yes: Regular Rate and Rhythm Respiratory: Yes: Regular Gastrointestinal Inspection: Yes: Distention ...Auscultate: Yes: Hyperactive Bowel Sounds ...Palpate: Yes: Soft. No: Firm/Rigid, Guarding, Mass, Pulsatile Mass, Tenderness, Tenderness, Epigastium, Tenderness, Rebound ...Rectal Exam: Yes: Deferred Neurological: Yes: Alert, Oriented Labs: CBC, BMP 06/25/17 07:35 06/25/17 07:35 INR, PTT INR 0.99 (0.82-1.09) 06/23/17 14:52 Laboratory Tests 06/23/17 06/23/17 06/23/17 14:52 14:52 14:52 WBC 19.8 H D RBC 4.46 D Hgb 14.1 D Hct 42.3 D MCV 94.9 MCH 31.7 D MCHC 33.4 RDW 14.8 Plt Count 183 D MPV 7.6 D Neutrophils % 85.4 H D Lymphocytes % 4.7 L D Monocytes % 9.3 Eosinophils % 0.2 D Basophils % 0.4 PT with INR 11.20 INR 0.99 Sodium 141 Potassium 3.5 Chloride 102 Carbon Dioxide 29 Anion Gap 10 BUN 45 H D Creatinine 2.6 H D Creat Clearance w eGFR 24.67 Random Glucose 137 H Calcium 8.7 Total Bilirubin 1.0 D Direct Bilirubin AST 9 L D ALT 14 D Alkaline Phosphatase 82 Creatine Kinase Troponin I B-Natriuretic Peptide Total Protein 6.7 Albumin 3.4 Ur Random Sodium Ur Random Potassium Ur Random Chloride 06/23/17 06/23/17 06/23/17 14:52 18:45 21:48 WBC RBC Hgb Hct MCV MCH MCHC RDW Plt Count MPV Neutrophils % Lymphocytes % Monocytes % Eosinophils % Basophils % PT with INR INR Sodium Potassium Chloride Carbon Dioxide Anion Gap BUN Creatinine Creat Clearance w eGFR Random Glucose Calcium Total Bilirubin Direct Bilirubin AST ALT Alkaline Phosphatase Creatine Kinase 89 Troponin I 0.02 0.02 B-Natriuretic Peptide 3096.25 H Total Protein Albumin Ur Random Sodium Ur Random Potassium Ur Random Chloride 06/24/17 06/24/17 06/24/17 09:38 09:38 20:43 WBC 19.1 H RBC 4.86 Hgb 15.1 Hct 46.4 MCV 95.6 MCH 31.1 MCHC 32.6 RDW 14.8 Plt Count 185 MPV 7.3 L Neutrophils % 84.5 H Lymphocytes % 4.2 L Monocytes % 10.7 H Eosinophils % 0.1 Basophils % 0.5 PT with INR INR Sodium 139 Potassium 3.2 L Chloride 98 Carbon Dioxide 31 Anion Gap 10 BUN 51 H Creatinine 3.0 H Creat Clearance w eGFR 20.91 Random Glucose 151 H Calcium 8.5 Total Bilirubin 1.7 H D Direct Bilirubin AST 8 L ALT 13 Alkaline Phosphatase 79 Creatine Kinase Troponin I B-Natriuretic Peptide Total Protein 6.8 Albumin 3.4 Ur Random Sodium 18 Ur Random Potassium 61.4 Ur Random Chloride 19 06/25/17 06/25/17 07:35 07:35 WBC 13.2 H D RBC 4.20 Hgb 13.2 D Hct 40.1 MCV 95.3 MCH 31.3 MCHC 32.8 RDW 14.4 Plt Count 169 MPV 8.0 Neutrophils % 77.6 Lymphocytes % 11.2 D Monocytes % 10.1 Eosinophils % 0.8 D Basophils % 0.3 PT with INR INR Sodium 139 Potassium 3.4 L Chloride 103 Carbon Dioxide 26 Anion Gap 10 BUN 77 H D Creatinine 2.7 H Creat Clearance w eGFR 23.62 Random Glucose 100 D Calcium 7.2 L Total Bilirubin 0.8 D Direct Bilirubin 0.3 H AST 9 L ALT 12 Alkaline Phosphatase 62 D Creatine Kinase Troponin I B-Natriuretic Peptide Total Protein 5.7 L Albumin 2.8 L Ur Random Sodium Ur Random Potassium Ur Random Chloride Imaging - Results X-ray: Report Reviewed Cat Scan: Report Reviewed Problem List - Problems (1) Bowel obstruction Code(s): K56.609 - UNSP INTESTNL OBST, UNSP TO PARTIAL VERSUS COMPLETE OBST (2) Intractable hiccups Code(s): R06.6 - HICCOUGH (3) Esophagitis Code(s): K20.9 - ESOPHAGITIS, UNSPECIFIED (4) Esophagitis determined by endoscopy Code(s): K20.9 - ESOPHAGITIS, UNSPECIFIED (5) Gastritis Code(s): K29.70 - GASTRITIS, UNSPECIFIED, WITHOUT BLEEDING (6) Duodenitis Code(s): K29.80 - DUODENITIS WITHOUT BLEEDING (7) Duodenitis determined by biopsy Code(s): K29.80 - DUODENITIS WITHOUT BLEEDING Assessment/Plan A 66 yom with PNA and possibly partial small bowel obstruction. Severe, friable, bleeding esophagitis, mild gastritis and moderate duodenitis on EGD this am. Dark, green, stool-like material in the stomach and proximal small bowel. No obstructing lesions noted on the exam. Suspect partial obstruction distally to the examined GI tract. NPO, NGT to intermittent suction CT abdomen with PO contrast (CKD) PPI and Carafate No NSAIDs Sx consultation
--- NOTE | 2017-06-25 12:18 | PROC ---
Endoscopy Procedure Endoscopy procedure completed. Please see scanned procedure report.
[2017-06-25] MEDS: PANTOPRAZOLE SODIUM 40 MG VIAL IVPUSH SCH ×2 (13:03→23:50)
--- NOTE | 2017-06-25 15:28 | PN ---
Progress Note (short form) - Note Progress Note: NGT inserted, auscultated, gastric content aspirated. Awaiting for PCXR to confirm. Problem List - Problems (1) Bowel obstruction Code(s): K56.609 - UNSP INTESTNL OBST, UNSP TO PARTIAL VERSUS COMPLETE OBST (2) Intractable hiccups Code(s): R06.6 - HICCOUGH (3) Esophagitis Code(s): K20.9 - ESOPHAGITIS, UNSPECIFIED (4) Esophagitis determined by endoscopy Code(s): K20.9 - ESOPHAGITIS, UNSPECIFIED (5) Gastritis Code(s): K29.70 - GASTRITIS, UNSPECIFIED, WITHOUT BLEEDING (6) Duodenitis Code(s): K29.80 - DUODENITIS WITHOUT BLEEDING (7) Duodenitis determined by biopsy Code(s): K29.80 - DUODENITIS WITHOUT BLEEDING
--- NOTE | 2017-06-25 17:32 | PN ---
Physical Exam: SUBJECTIVE: Patient seen and examined Pt reports decreased cough, hiccups, and acid reflux. He endorses 2 episodes of green emesis yesterday, 2 loose BMs after ingesting po contrast. He denies abdominal pain. OBJECTIVE: Vital Signs Period Temp Pulse Resp BP Sys/Juan Pulse Ox Last 24 Hr 97.2 F-98.6 F 53-85 16-28 102-139/61-85 95-100 GENERAL: The patient is awake, alert, and fully oriented, in no acute distress. HEENT: NC, AT NECK: Trachea midline, full range of motion, supple. LUNGS: left sided rales at mid-lung HEART: Regular rate and rhythm, S1, S2 without murmur, rub or gallop. ABDOMEN: midline scar, obese abdomen, normoactive BS, soft, NT, reducible large hernia in epigastric region EXTREMITIES: 2+ pulses, warm, well-perfused, no edema. NEUROLOGICAL: Cranial nerves II through XII grossly intact. Normal speech, gait not observed. Laboratory Results - last 24 hr 06/24/17 06/25/17 06/25/17 20:43 07:35 07:35 WBC 13.2 H D RBC 4.20 Hgb 13.2 D Hct 40.1 MCV 95.3 MCH 31.3 MCHC 32.8 RDW 14.4 Plt Count 169 MPV 8.0 Neutrophils % 77.6 Lymphocytes % 11.2 D Monocytes % 10.1 Eosinophils % 0.8 D Basophils % 0.3 Sodium 139 Potassium 3.4 L Chloride 103 Carbon Dioxide 26 Anion Gap 10 BUN 77 H D Creatinine 2.7 H Creat Clearance w eGFR 23.62 Random Glucose 100 D Calcium 7.2 L Total Bilirubin 0.8 D Direct Bilirubin 0.3 H AST 9 L ALT 12 Alkaline Phosphatase 62 D Total Protein 5.7 L Albumin 2.8 L Ur Random Sodium 18 Ur Random Potassium 61.4 Ur Random Chloride 19 Active Medications Generic Name Dose Route Start Last Admin Trade Name Freq PRN Reason Stop Dose Admin Amlodipine Besylate 10 mg 06/24/17 10:00 06/25/17 09:59 Norvasc - PO Not Given DAILY [facility] Atenolol 37.5 mg 06/24/17 10:00 06/25/17 10:00 Tenormin - PO Not Given DAILY [facility] Atorvastatin Calcium 40 mg 06/24/17 22:00 06/24/17 23:09 Lipitor - PO 40 mg HS DAVID Administration Finasteride 5 mg 06/24/17 10:00 06/25/17 09:59 Proscar - PO Not Given DAILY [facility] Folic Acid 1 mg 06/24/17 10:00 06/25/17 09:59 Folic Acid - PO Not Given DAILY [facility] Heparin Sodium (Porcine) 5,000 unit 06/24/17 06:00 06/25/17 14:00 Heparin - SQ Not Given TID [facility] CEFTRIAXONE 1 G/50 ML PREMIX 50 mls @ 100 mls/hr 06/24/17 21:00 06/25/17 10: 30 Ceftriaxone 1 Gm-D5w Bag IVPB Not Given DAILY [facility] Azithromycin 500 mg/ Dextrose 250 mls @ 250 mls/hr 06/24/17 22:00 06/24/17 23 :09 IVPB 250 mls/hr DAILY@2200 [facility] Administration Oseltamivir Phosphate 30 mg 06/26/17 05:00 Tamiflu - PO 07/01/17 04:59 Q48H [facility] Pantoprazole Sodium 40 mg 06/25/17 12:15 06/25/17 13:03 Protonix Iv IVPUSH 40 mg BID DAVID Administration Sodium Bicarbonate 650 mg 06/24/17 10:00 06/25/17 10:00 Sodium Bicarbonate - PO Not Given DAILY [facility] Sucralfate 1 gm 06/25/17 14:00 06/25/17 14:00 Carafate Oral Suspension - PO Not Given QID [facility] Tamsulosin HCl 0.4 mg 06/24/17 08:30 06/25/17 09:51 Flomax - PO Not Given DAILY@0830 [facility] ASSESSMENT/PLAN: 66M with PMHx of HTN, HLD, BPH, [place] s/p stentx1, and renal aneurysm s/p surgery who presented with acute intractable hiccups, found to have a lingular infiltrate and leukocytosis, admitted to obs for CAP # CAP * CT chest: lingular infiltrate * continue Ceftriaxone and Azithromycin (day 3 of abx) * Urine legionella and strep pneumo Ag: negative * leukocytosis: 19.8 --> 19--> 13.2 * moinitor temps and wbc counts * f/u Bcx and Scx # Intractable Hiccup * likely 2/2 etiology * CT chest: mild fluid-filled distention of thoracic esophagus 2/2 reflux vs. gastroparesis or gastric outlet obstruction * GI consulted, recs appreciated * EGD performed, showed esophagitis, gastritis, duodenitis, and partial SBO #partial SBO -NPO -NG tube to suction -IV fluids -f/u CT abdomen/pelvis. Pt refusing po contrast #Heartburn * continue protonix #Influenza A + * continue Tamiflu 30 q48h, renally dosed * Respiratory isolation precautions # MANJULA on CKD * creatinine: 2.6 --> 3--> 2.7 (baseline 2.1 in 2013). * continue fluids * f/u urine lytes * renal US: b/l echogenic renal cortices, left renal atrophy, no hydro or stones * Avoid nephrotoxic agents * Trend creatinine # HTN * controlled * continue home norvasc and atenolol # HLD * Continue home Lipitor 40 mg PO daily #BPH * continue home Flomax and finasteride #FEN * F: NS @50 * E: K repleted * N: low sodium low fat diet * DVT: heparin 5000 Q8hr * GI: protonix Case discussed with attending, Dr. Lau. -Keith Ferris MD PGY1 Visit type - Emergency Visit Emergency Visit: Yes ED Registration Date: 06/24/17 Care time: The patient presented to the Emergency Department on the above date and was hospitalized for further evaluation of their emergent condition. - New Patient This patient is new to me today: No - Critical Care Critical Care patient: No
--- NOTE | 2017-06-25 19:11 | PN ---
Teaching Attending Note Name of Resident: Keith Ferris ATTENDING PHYSICIAN STATEMENT I saw and evaluated the patient. I reviewed the resident's note and discussed the case with the resident. I agree with the resident's findings and plan as documented. SUBJECTIVE: seen at 10 am complains of HIccups .diarrhea yesterday after po contrast . No SOB OBJECTIVE: NAD CV: RRR Lungs: CTAB Ext: no edema Lungs: crackles at middle and base of L lung ASSESSMENT AND PLAN: 66 y/o man with h/o HTN, HLD, BPH, CAD s/p [place] s/p stentx1, renal aneurysm s/p surgery who presented with Hiccups, SOB, cough and sputum production and was found to have CAP and Flu A 1- Flu A : cont tamiflu 30 mg QOD x 5 days . corrected dose for his renal function 2- CAP : - cont Azithro and ceftriaxone . day 3 this evening - blood cx and sputum cx pending 3- MANJULA on CKD : likely due to prerenal azotemia in setting of decreased po intake, and vomiting. improved with IV hydration - increase IVF - repeat labs in am 4- Hiccups: EGD with significant esophagitis , and gastritis with duodenitis . with possible obstruction distal to that - NGT inserted. - CT planned but pt refused po contrast 5- DVT PX HLOC
[2017-06-25] MEDS: ATORVASTATIN CA 40 MG TABLET (FP) PO SCH (23:50)
[2017-06-25] MEDS: AZITHROMYCIN IVPB 500 MG in DEXTROSE 5%-WATER - 250 ML IVPB SCH (23:50)
[2017-06-26] MEDS: SUCRALFATE 1 GM/10 ML UNIT DOSE CUPS PO SCH ×4 (00:46→17:20)
[2017-06-26] MEDS ORDERED: PT OWN MED DRAWER 7, Y5N ONE ×2 (01:14→05:17)
[2017-06-26] MEDS: HEPARIN NA (PORCINE) 5,000 UNITS/ML 1ML VIAL SQ SCH ×2 (05:35→13:48)
[2017-06-26] MEDS: OSELTAMIVIR PHOSPHATE 30 MG CAPSULE PO SCH (05:35)
[2017-06-26 08:08] LABS: HEMATOCRIT 41.1 % (35.4-49); HEMOGLOBIN 13.5 GM/dL (11.7-16.9); MCH 31.1 pg (25.7-33.7); MCHC 32.7 g/dl (32.0-35.9); MEAN PLT VOLUME 8.7 fl (7.5-11.1); PLATELET COUNT 171 K/MM3 (134-434); RBC 4.33 M/mm3 (4.00-5.60); RDW 14.7 % (11.9-15.9); WHITE BLOOD COUNT 12.1 K/mm3 (4.0-10.0)
[2017-06-26 08:11] LABS: ALBUMIN 2.8 g/dl (3.4-5.0); ANION GAP 13 (8-16); CHLORIDE 103 mmol/L (98-107); CO2 25 mmol/L (21-32); POTASSIUM 3.5 mmol/L (3.5-5.1); SODIUM 141 mmol/L (136-145)
[2017-06-26 08:16] LABS: ALK PHOS 70 U/L (45-117); BILIRUBIN,TOTAL 0.7 mg/dL (0.2-1.0); BLOOD UREA NITROGEN 59 mg/dL (7-18); CREATININE 2.5 mg/dL (0.7-1.3); GLUCOSE,RANDOM 86 mg/dL (74-106); SGOT/AST 14 U/L (15-37); SGPT/ALT 13 U/L (12-78)
--- NOTE | 2017-06-26 10:07 | CONSULT ---
- Consultation REQUESTING PROVIDER: Eduar Lau MD CONSULT REQUEST: We have been asked to surgically evaluate this patient for ( specify). PCP:Myarnda Lau HISTORY OF PRESENT ILLNESS: CTSP who is a 66 y/o male who presented # days ago w / hiccups; extensive inpatient w/u was done; pt appears to have an SBO secondary to incisional hernia. patient is also currently being txed for influenza and ? pneumonia. NGT was inserted; patient also had EGD yesterday. He states he has a known incisional hernia since shortly after the open renal aneurysm repair; he was told to " leave it alone ". PMHx: hypertension; hyperlipidemia PSHx: open repair renal artery aneurysm; imcisional hernia Home Medications Medication Instructions Recorded Tamsulosin HCl [Flomax] 0.4 mg PO DAILY 01/03/14 Amlodipine Besylate [Norvasc -] 10 mg PO DAILY 06/23/17 Atenolol [Tenormin -] 37.5 mg PO DAILY 06/23/17 Atorvastatin Ca [Lipitor] 40 mg PO HS 06/23/17 Finasteride [Proscar -] 5 mg PO DAILY 06/23/17 Folic Acid - 1 mg PO DAILY 06/23/17 Sodium Bicarbonate - 650 mg PO DAILY 06/23/17 Allergies Allergy/AdvReac Type Severity Reaction Status Date / Time tetracycline Allergy Severe Swelling Verified 06/25/17 13:29 PHYSICAL EXAM: GENERAL: Awake, alert, and fully oriented, in no acute distress. HEAD: Normal with no signs of trauma. EYES: sclera anicteric, conjunctiva clear. NECK: Normal ROM, supple without lymphadenopathy, JVD, or masses. ABDOMEN: Soft, nontender, not distended, normoactive bowel sounds, no guarding, no rebound, no masses. No organomegaly. Healed midline surgical scar w/ reducible incisional hernia. MUSCULOSKELETAL: Normal ROM at all joints. No bony deformities or tenderness. No CVA tenderness. UPPER EXTREMITIES: 2+ pulses, warm, well-perfused. No cyanosis. Cap refill <2 seconds. No peripheral edema. LOWER EXTREMITIES: 2+ pulses, warm, well-perfused. No calf tenderness. No peripheral edema. NEUROLOGICAL: Normal speech, gait not observed. PSYCH: Cooperative. Good eye contact. Appropriate mood and affect. SKIN: Warm, dry, normal turgor, no rashes or lesions noted. Vital Signs Temperature 99.3 F 06/26/17 06:00 Pulse Rate 58 L 06/26/17 06:00 Respiratory Rate 18 06/26/17 06:00 Blood Pressure 111/66 06/26/17 06:00 O2 Sat by Pulse Oximetry (%) 98 06/26/17 03:00 Lab Results WBC 12.1 K/mm3 (4.0-10.0) H 06/26/17 06:30 RBC 4.33 M/mm3 (4.00-5.60) 06/26/17 06:30 Hgb 13.5 GM/dL (11.7-16.9) 06/26/17 06:30 Hct 41.1 % (35.4-49) 06/26/17 06:30 MCV 95.0 fl (80-96) 06/26/17 06:30 MCHC 32.7 g/dl (32.0-35.9) 06/26/17 06:30 RDW 14.7 % (11.9-15.9) 06/26/17 06:30 Plt Count 171 K/MM3 (134-434) 06/26/17 06:30 Sodium 141 mmol/L (136-145) 06/26/17 06:30 Potassium 3.5 mmol/L (3.5-5.1) 06/26/17 06:30 Chloride 103 mmol/L (98-107) 06/26/17 06:30 Carbon Dioxide 25 mmol/L (21-32) 06/26/17 06:30 Anion Gap 13 (8-16) 06/26/17 06:30 BUN 59 mg/dL (7-18) H D 06/26/17 06:30 Creatinine 2.5 mg/dL (0.7-1.3) H 06/26/17 06:30 Random Glucose 86 mg/dL (74-106) 06/26/17 06:30 Calcium 8.0 mg/dL (8.5-10.1) L 06/26/17 06:30 INR 0.99 (0.82-1.09) 06/23/17 14:52 CVT scan a/p reviewed; labs reviewed. IMP: incisional hernia; psbo; influenza; possible pneumonia. SBO appears to be partial based on the fact that there is oral contrast present in the colon on the CT scan. PLAN: Continue NPO/IVF/NGT; serial exams and axr's; will f/u. Joseph Donaldson MD FACS Visit type - Case Type Case Type: ED Admission - Emergency Emergency Visit: Yes ED Registration Date: 06/24/17 Care time: The patient presented to the Emergency Department on the above date and was hospitalized for further evaluation of their emergent condition. - New patient This patient is new to me today: Yes Date on this admission: 06/26/17 - Critical Care Critical Care patient: No
[2017-06-26] MEDS: TAMSULOSIN HCL 0.4 MG CAP.ER.24H (FP) PO SCH (11:22)
[2017-06-26] MEDS: ATENOLOL 25 MG TABLET (FP) PO SCH (11:23)
[2017-06-26] MEDS: FINASTERIDE 5 MG TABLET (FP) PO SCH (11:23)
[2017-06-26] MEDS: amLODIPine BESYLATE 10 MG TABLET (FP) PO SCH (11:23)
[2017-06-26] MEDS: FOLIC ACID 1 MG TABLET (FP) PO SCH (11:23)
[2017-06-26] MEDS: SODIUM BICARBONATE 650 MG TABLET PO SCH (11:23)
[2017-06-26] MEDS: CEFTRIAXONE 1 G/50 ML PREMIX 50 ML IVPB SCH (11:24)
[2017-06-26] MEDS: PANTOPRAZOLE SODIUM 40 MG VIAL IVPUSH SCH (11:24)
--- NOTE | 2017-06-26 11:44 | PN ---
Progress Note, Physician History of Present Illness: NGT still draining good amount of fluid. CT w/ oral contrast - partial SBO, possibly trapped small bowel in incision hernia. The patient is not in distress , or pain. The abdomen is soft and less distended today. - Current Medication List Current Medications: Active Medications Amlodipine Besylate (Norvasc -) 10 mg PO DAILY [facility] Last Admin: 06/26/17 11:23 Dose: 10 mg Atenolol (Tenormin -) 37.5 mg PO DAILY [facility] Last Admin: 06/26/17 11:23 Dose: 37.5 mg Atorvastatin Calcium (Lipitor -) 40 mg PO HS [facility] Last Admin: 06/25/17 23:50 Dose: 40 mg Finasteride (Proscar -) 5 mg PO DAILY [facility] Last Admin: 06/26/17 11:23 Dose: 5 mg Folic Acid (Folic Acid -) 1 mg PO DAILY [facility] Last Admin: 06/26/17 11:23 Dose: 1 mg Heparin Sodium (Porcine) (Heparin -) 5,000 unit SQ TID [facility] Last Admin: 06/26/17 05:35 Dose: 5,000 unit CEFTRIAXONE 1 G/50 ML PREMIX (Ceftriaxone 1 Gm-D5w Bag) 50 mls @ 100 mls/hr IVPB DAILY [facility] Last Admin: 06/26/17 11:24 Dose: 100 mls/hr Azithromycin 500 mg/ Dextrose 250 mls @ 250 mls/hr IVPB DAILY@2200 [facility] Last Admin: 06/25/17 23:50 Dose: 250 mls/hr Oseltamivir Phosphate (Tamiflu -) 30 mg PO Q48H [facility] Stop: 07/01/17 04:59 Last Admin: 06/26/17 05:35 Dose: 30 mg Pantoprazole Sodium (Protonix Iv) 40 mg IVPUSH BID [facility] Last Admin: 06/26/17 11:24 Dose: 40 mg Sodium Bicarbonate (Sodium Bicarbonate -) 650 mg PO DAILY [facility] Last Admin: 06/26/17 11:23 Dose: 650 mg Sucralfate (Carafate Oral Suspension -) 1 gm PO QID [facility] Last Admin: 06/26/17 11:25 Dose: 1 gm Tamsulosin HCl (Flomax -) 0.4 mg PO DAILY@0830 [facility] Last Admin: 06/26/17 11:22 Dose: 0.4 mg - Objective Vital Signs: Vital Signs Temperature 99.3 F 06/26/17 06:00 Pulse Rate 58 L 06/26/17 06:00 Respiratory Rate 18 06/26/17 06:00 Blood Pressure 111/66 06/26/17 06:00 O2 Sat by Pulse Oximetry (%) 98 06/26/17 03:00 Neurological: Yes: Alert, Oriented Labs: CBC, BMP 06/26/17 06:30 06/26/17 06:30 INR, PTT INR 0.99 (0.82-1.09) 06/23/17 14:52 Abnormal Lab Results 06/26/17 06/26/17 06:30 06:30 WBC 12.1 H BUN 59 H D Creatinine 2.5 H Calcium 8.0 L AST 14 L D Total Protein 6.0 L Albumin 2.8 L - ....Imaging Cat Scan: Report Reviewed Problem List - Problems (1) Bowel obstruction Code(s): K56.609 - UNSP INTESTNL OBST, UNSP TO PARTIAL VERSUS COMPLETE OBST (2) Intractable hiccups Code(s): R06.6 - HICCOUGH (3) Esophagitis Code(s): K20.9 - ESOPHAGITIS, UNSPECIFIED (4) Esophagitis determined by endoscopy Code(s): K20.9 - ESOPHAGITIS, UNSPECIFIED (5) Gastritis Code(s): K29.70 - GASTRITIS, UNSPECIFIED, WITHOUT BLEEDING (6) Duodenitis Code(s): K29.80 - DUODENITIS WITHOUT BLEEDING (7) Duodenitis determined by biopsy Code(s): K29.80 - DUODENITIS WITHOUT BLEEDING Assessment/Plan A 66 yom with PNA and partial small bowel obstruction. Continue the same management NPO, NGT to intermittent suction PPI and Carafate No NSAIDs Sx follows Discussed with the patient
--- NOTE | 2017-06-26 15:44 | PN ---
Physical Exam: SUBJECTIVE: Patient seen and examined No acute events overnight. Pt denies nausea, emesis, diarrhea, any BMs, abdominal pain, fevers, chills, chest pain, SOB, or dysuria. He endorses an appetite. OBJECTIVE: Vital Signs Period Temp Pulse Resp BP Sys/Juan Pulse Ox Last 24 Hr 97 F-100.0 F 58-82 16-18 111-139/66-75 96-100 GENERAL: The patient is awake, alert, and fully oriented, in no acute distress, with NG tube in place HEENT: NG tube inserted NECK: Trachea midline, full range of motion, supple. LUNGS: left sided rales at mid-lung HEART: Regular rate and rhythm, S1, S2 without murmur, rub or gallop. ABDOMEN: midline scar, obese abdomen, normoactive BS, soft, NT, reducible large hernia in epigastric region EXTREMITIES: 2+ pulses, warm, well-perfused, no edema. NEUROLOGICAL: Cranial nerves II through XII grossly intact. Normal speech, gait not observed. Laboratory Results - last 24 hr 06/26/17 06/26/17 06/26/17 06:23 06:23 06:30 WBC 12.1 H RBC 4.33 Hgb 13.5 Hct 41.1 MCV 95.0 MCH 31.1 MCHC 32.7 RDW 14.7 Plt Count 171 MPV 8.7 Sodium Potassium Chloride Carbon Dioxide Anion Gap BUN Creatinine Creat Clearance w eGFR Random Glucose Calcium Total Bilirubin AST ALT Alkaline Phosphatase Total Protein Albumin Ur Random Sodium 51 Ur Random Potassium 23.2 Ur Random Chloride 35 Urine Creatinine 81.5 06/26/17 06:30 WBC RBC Hgb Hct MCV MCH MCHC RDW Plt Count MPV Sodium 141 Potassium 3.5 Chloride 103 Carbon Dioxide 25 Anion Gap 13 BUN 59 H D Creatinine 2.5 H Creat Clearance w eGFR 25.81 Random Glucose 86 Calcium 8.0 L Total Bilirubin 0.7 AST 14 L D ALT 13 Alkaline Phosphatase 70 Total Protein 6.0 L Albumin 2.8 L Ur Random Sodium Ur Random Potassium Ur Random Chloride Urine Creatinine Active Medications Generic Name Dose Route Start Last Admin Trade Name Freq PRN Reason Stop Dose Admin Amlodipine Besylate 10 mg 06/24/17 10:00 06/26/17 11:23 Norvasc - PO 10 mg DAILY DAVID Administration Atenolol 37.5 mg 06/24/17 10:00 06/26/17 11:23 Tenormin - PO 37.5 mg DAILY DAVID Administration Atorvastatin Calcium 40 mg 06/24/17 22:00 06/25/17 23:50 Lipitor - PO 40 mg HS DAVID Administration Finasteride 5 mg 06/24/17 10:00 06/26/17 11:23 Proscar - PO 5 mg DAILY DAVID Administration Folic Acid 1 mg 06/24/17 10:00 06/26/17 11:23 Folic Acid - PO 1 mg DAILY DAVID Administration Heparin Sodium (Porcine) 5,000 unit 06/24/17 06:00 06/26/17 13:48 Heparin - SQ 5,000 unit TID DAVID Administration CEFTRIAXONE 1 G/50 ML PREMIX 50 mls @ 100 mls/hr 06/24/17 21:00 06/26/17 11: 24 Ceftriaxone 1 Gm-D5w Bag IVPB 100 mls/hr DAILY [facility] Administration Azithromycin 500 mg/ Dextrose 250 mls @ 250 mls/hr 06/24/17 22:00 06/25/17 23 :50 IVPB 250 mls/hr DAILY@2200 [facility]ID Administration Oseltamivir Phosphate 30 mg 06/26/17 05:00 06/26/17 05:35 Tamiflu - PO 07/01/17 04:59 30 mg Q48H [facility]ID Administration Pantoprazole Sodium 40 mg 06/25/17 12:15 06/26/17 11:24 Protonix Iv IVPUSH 40 mg BID [facility]ID Administration Sodium Bicarbonate 650 mg 06/24/17 10:00 06/26/17 11:23 Sodium Bicarbonate - PO 650 mg DAILY [facility]ID Administration Sucralfate 1 gm 06/25/17 14:00 06/26/17 13:48 Carafate Oral Suspension - PO 1 gm QID [facility]ID Administration Tamsulosin HCl 0.4 mg 06/24/17 08:30 06/26/17 11:22 Flomax - PO 0.4 mg DAILY@0830 [facility]ID Administration ASSESSMENT/PLAN: 66M with PMHx of HTN, HLD, BPH, [place] s/p stentx1, and renal aneurysm s/p surgery who presented with acute intractable hiccups, found to have a lingular infiltrate and leukocytosis, admitted for CAP. # CAP * CT chest: lingular infiltrate * continue Ceftriaxone and Azithromycin (day 4 of abx) * Urine legionella and strep pneumo Ag: negative * leukocytosis: 19.8 --> 19--> 13.2--> 12.1 * afebrile overnight * monitor temps and wbc counts * Bcx: nothing x 24h * Scx:P uncollected # Intractable Hiccup * likely 2/2 GI etiology * CT chest: mild fluid-filled distention of thoracic esophagus 2/2 reflux vs. gastroparesis or gastric outlet obstruction * GI consulted, recs appreciated * EGD performed, showed esophagitis, gastritis, duodenitis, and partial SBO * CT abdomen/pelvis: partial SBO w/ transition point in hernia. 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 Pt informed of findings #AAA * vascular consulted about AAA, f/u recs * pt wants his PCP and prior surgeon notified #partial SBO -per GI and surgery, continue NPO, NG tube, IV fluids -serial abdominal exams and AXRs #Heartburn * continue protonix #Influenza A + * continue Tamiflu 30 q48h, renally dosed * Respiratory isolation precautions # MANJULA on CKD- likely resolved * creatinine: 2.6 --> 3--> 2.7--> 2.5 (baseline 2.1 in 2013). Likely at new baseline * continue fluids * renal US: b/l echogenic renal cortices, left renal atrophy, no hydro or stones * Avoid nephrotoxic agents * Trend creatinine # HTN * controlled * continue home norvasc and atenolol # HLD * Continue home Lipitor 40 mg PO daily #BPH * continue home Flomax and finasteride #FEN * F: NS @100 * E: K repleted * N: NPO * DVT: heparin 5000 Q8hr * GI: protonix Case discussed with attending, Dr. Lau. -Keith Ferris MD PGY1 Visit type - Emergency Visit Emergency Visit: Yes ED Registration Date: 06/26/17 Care time: The patient presented to the Emergency Department on the above date and was hospitalized for further evaluation of their emergent condition. - New Patient This patient is new to me today: No - Critical Care Critical Care patient: No
--- NOTE | 2017-06-26 16:14 | PATH ---
Surgical Pathology Report Patient Name: VASILE KULKARNI Med. Rec. #: [id number] /Age/Gender: 1950 (Age: 66) / M Account: [id number] Location: [facility] MED/SURG Taken: 06/25/2017 Received: 06/25/2017 Reported: 06/26/2017 Physicians: Rocky Valentin M.D. Specimen(s) Received A: BX DUODENAL BULB B: BX ANTRUM AND BODY C: BX MID ESOPHAGUS Clinical History Preoperative diagnosis: Gastric outlet obstruction, intractable hiccups Postoperative diagnosis: Small bowel obstruction, duodenitis, gastritis, esophagitis Final Diagnosis A. DUODENAL BULB, BIOPSY: SCANT DUODENAL MUCOSA WITHOUT SIGNIFICANT PATHOLOGIC FINDINGS. B. STOMACH, ANTRUM AND BODY BIOPSY: GASTRIC ANTRAL AND BODY MUCOSA WITH MILD CHRONIC GASTRITIS. IMMUNOHISTOCHEMICAL STAIN FOR H. PYLORI IS NEGATIVE. C. MID ESOPHAGUS, BIOPSY: ACUTE PURULENT EXUDATE CONSISTENT WITH ULCER BASE. NO VIABLE ESOPHAGEAL SQUAMOUS MUCOSA IDENTIFIED. FUNGAL SPECIAL STAIN (PAS) IS NEGATIVE. Electronically Signed Breana Beckman M.D. Gross Description A. Received in formalin, labeled "biopsy duodenal bulb" are 2 [place], irregular portions of soft tissue averaging 0.3 cm. in greatest dimension. The specimens are submitted in toto in one cassette. B. Received in formalin, labeled "biopsy antrum and body" is a norwood, irregular portion of soft tissue measuring 0.4 cm. in greatest dimension. The specimen is submitted in toto in one cassette. C. Received in formalin, labeled "biopsy mid esophagus" is a norwood, irregular portion of soft tissue measuring 0.2 cm. in greatest dimension. The specimen is submitted in toto in one cassette. DL/06/25/2017 saudi06/25/2017
--- NOTE | 2017-06-26 16:22 | PN ---
Progress Note (short form) - Note Progress Note: Vascular Surgery Pt's CT scan reviewed. Fusiform aneurysm of the aorta 3.4cm. No need for any surgical intervention at this time. Need to repair aneurysm once it is greater than 5cm. US of the aorta every 6 months to see if it is growing. Medical management. Charan douglass DO
[2017-06-26] MEDS ORDERED: ALBUTEROL SO4 0.083% IH SOL 2.5 MG/3 ML VIAL.NEB. NEB PRN ×2 (18:34→18:35)
[2017-06-26] MEDS ORDERED: ACETYLCYSTEINE 20% 200MG/ML 4 ML VIAL *FOR ORAL / INH USE ONLY NEB ONE (18:45)
--- NOTE | 2017-06-26 19:55 | PN ---
Teaching Attending Note Name of Resident: Keith Ferris ATTENDING PHYSICIAN STATEMENT I saw and evaluated the patient. I reviewed the resident's note and discussed the case with the resident. I agree with the resident's findings and plan as documented. SUBJECTIVE: No fever or chills. Hiccups are better. abd distention is better OBJECTIVE: NAD CV: RRR Lungs: CTAB Ext: no edema Lungs: crackles at middle and base of L lung Abd ; soft, slightly distended, L Abd wall hernias on L side of mid line ASSESSMENT AND PLAN: 66 y/o man with h/o HTN, HLD, BPH, CAD s/p [place] s/p stentx1, renal aneurysm s/p surgery who presented with Hiccups, SOB, cough and sputum production and was found to have CAP and Flu A 1- SOB, with transition point probably in abd wall hernia - abd exam and sx improved with NGT decompression - appreciate GI and Sx input - conservative mgt for now - cont NGt and IVF - NPO 2- Flu A : cont tamiflu 30 mg QOD x 5 days . day 3 today 3- CAP : - cont Azithro and ceftriaxone . day 4 this evening - blood cx and sputum cx pending 4- MANJULA on CKD : likely due to prerenal azotemia in setting of decreased po intake, and vomiting. improved with IV hydration . CKd is likely due to compromised flow to L renal artery by AAA - cont IVF - appreciate vascular input 5- Hiccups: EGD with significant esophagitis , and gastritis with duodenitis . with possible obstruction distal to that - NGT inserted. - CT planned but pt refused po contrast 6- DVT PX HLOC ASSESSMENT AND PLAN:
[2017-06-27] MEDS: SUCRALFATE 1 GM/10 ML UNIT DOSE CUPS PO SCH ×5 (00:08→21:55)
[2017-06-27] MEDS: AZITHROMYCIN IVPB 500 MG in DEXTROSE 5%-WATER - 250 ML IVPB SCH ×2 (00:08→21:55)
[2017-06-27] MEDS: ATORVASTATIN CA 40 MG TABLET (FP) PO SCH ×2 (00:09→21:55)
[2017-06-27] MEDS: HEPARIN NA (PORCINE) 5,000 UNITS/ML 1ML VIAL SQ SCH ×4 (00:09→21:55)
[2017-06-27] MEDS: PANTOPRAZOLE SODIUM 40 MG VIAL IVPUSH SCH ×2 (00:10→10:44)
[2017-06-27] MEDS: TAMSULOSIN HCL 0.4 MG CAP.ER.24H (FP) PO SCH (10:43)
[2017-06-27] MEDS: ATENOLOL 25 MG TABLET (FP) PO SCH (10:43)
[2017-06-27] MEDS: FINASTERIDE 5 MG TABLET (FP) PO SCH (10:43)
[2017-06-27] MEDS: CEFTRIAXONE 1 G/50 ML PREMIX 50 ML IVPB SCH (10:44)
[2017-06-27] MEDS: amLODIPine BESYLATE 10 MG TABLET (FP) PO SCH (10:44)
[2017-06-27] MEDS: SODIUM BICARBONATE 650 MG TABLET PO SCH (10:44)
[2017-06-27] MEDS: FOLIC ACID 1 MG TABLET (FP) PO SCH (10:44)
[2017-06-27] MEDS ORDERED: DEXTROSE 5%-0.45% SALINE 1,000 ML IV SCH (11:45)
--- NOTE | 2017-06-27 12:15 | PN ---
Progress Note (short form) - Note Progress Note: Attending Surgeon No c/o; passing flatus abdomen-soft; non tender; non distended; non tympanitic; hernia reducible. AXR's yesterday w/o evidence of SBO IMP: improved PLAN: NGT d/c'ed; trial of clear liquids and advance as tolerated. Joseph Donaldson MD FACS
--- NOTE | 2017-06-27 12:20 | PN ---
GI Progress Note Subjective: Covering for Dr. Melendez who resumes coverage Sunday 04/29 No acute events No abdominal pain No vomiting - Objective Vital Signs: Vital Signs Temperature 97.6 F 06/27/17 10:45 Pulse Rate 57 L 06/27/17 10:45 Respiratory Rate 06/27/17 10:45 Blood Pressure 145/71 06/27/17 10:45 O2 Sat by Pulse Oximetry (%) 98 06/27/17 10:45 Constitutional: Calm Cardiovascular: Yes: Regular Rate and Rhythm. No: Murmur Respiratory: Yes: CTA Bilaterally Gastrointestinal Inspection: Yes: Scars ([place] surgical scar with ventral hernia cephalad to umbilicus, redicible, non-tender). No: Distention ...Auscultate: Yes: Normoactive Bowel Sounds ...Percussion: No: Tympanitic Edema: No (No LE edema) Labs: CBC, BMP 06/26/17 06:30 06/26/17 06:30 INR, PTT INR 0.99 (0.82-1.09) 06/23/17 14:52 Hepatic Panel Total Bilirubin 0.7 mg/dL (0.2-1.0) 06/26/17 06:30 Direct Bilirubin 0.3 mg/dL (0.0-0.2) H 06/25/17 07:35 AST 14 U/L (15-37) L D 06/26/17 06:30 ALT 13 U/L (12-78) 06/26/17 06:30 Alkaline Phosphatase 70 U/L (45-117) 06/26/17 06:30 Albumin 2.8 g/dl (3.4-5.0) L 06/26/17 06:30 Problem List - Problems (1) Partial small bowel obstruction Assessment/Plan: Suspected to be related to ventral hernia Being followed by surgery: NGT to be removed today Continue to monitor CT scan with thickening of GE junction however EGD performed last week: esophagitis. if tolerating PO can change to PO protonix Code(s): K56.600 - PARTIAL INTESTINAL OBSTRUCTION, UNSPECIFIED TO CAUSE
[2017-06-27 12:27] LABS: HEMATOCRIT 39.1 % (35.4-49); HEMOGLOBIN 13.3 GM/dL (11.7-16.9); MCH 31.7 pg (25.7-33.7); MCHC 33.9 g/dl (32.0-35.9); MEAN CELL VOLUME 93.4 fl (80-96); MEAN PLT VOLUME 7.9 fl (7.5-11.1); PLATELET COUNT 208 K/MM3 (134-434); RBC 4.19 M/mm3 (4.00-5.60); WHITE BLOOD COUNT 11.2 K/mm3 (4.0-10.0)
[2017-06-27 12:53] LABS: ANION GAP 12 (8-16); BLOOD UREA NITROGEN 40 mg/dL (7-18); CALCIUM 7.6 mg/dL (8.5-10.1); CHLORIDE 109 mmol/L (98-107); CO2 25 mmol/L (21-32); CREATININE 2.2 mg/dL (0.7-1.3); GLUCOSE,RANDOM 89 mg/dL (74-106); POTASSIUM 3.2 mmol/L (3.5-5.1); SODIUM 146 mmol/L (136-145)
--- NOTE | 2017-06-27 16:22 | PN ---
Teaching Attending Note Name of Resident: Natacha Molina ATTENDING PHYSICIAN STATEMENT I saw and evaluated the patient. I reviewed the resident's note and discussed the case with the resident. I agree with the resident's findings and plan as documented. SUBJECTIVE: No fever or chills . has no more hiccups. no abd apin , NO BM yet OBJECTIVE: NAD CV: RRR Lungs: CTAB Ext: no edema Lungs: crackles at middle and base of L lung Abd; soft, slightly distended, mid line Abd wall hernias . hyperactive BS ASSESSMENT AND PLAN: 66 y/o man with h/o HTN, HLD, BPH, CAD s/p [place] s/p stentx1, renal aneurysm s/p surgery who presented with Hiccups, SOB, cough and sputum production and was found to have CAP and Flu A 1- SOB, with transition point probably in abd wall hernia - d/w Dr. Donaldson. dc NGT today - clears - IVF for now 2- Flu A: cont Tamiflu 30 mg QOD x 5 days . day 4 today 3- CAP: - cont Azithro and ceftriaxone. day 5 this evening . leukocysotsis is improving - blood cx NGTD and sputum cx with yeast. 4- MANJULA on CKD : likely due to prerenal azotemia in setting of decreased po intake, and vomiting. improved with IV hydration . CKd is likely due to compromised flow to L renal artery by AAA - cont IVF. - hypernatremic today , will evaluate tomorrow 5- Hiccups: due to SBO . resolved 6- Esophagitis. cont PPI . change to po 7- DVT PX HLOC
[2017-06-27] MEDS ORDERED: POTASSIUM CHLORIDE TABS 20 MEQ TABLET.ER (FP) PO ONE (16:45)
[2017-06-27] MEDS: SODIUM CHLORIDE 1,000 ML IV SCH (17:29)
[2017-06-27 21:36] LABS: MAGNESIUM 2.4 mg/dL (1.8-2.4)
[2017-06-27] MEDS ORDERED: PT OWN MED DRAWER 7, Y5N ONE (21:50)
[2017-06-27] MEDS: PANTOPRAZOLE 40 MG TABLET (FP) PO SCH (21:55)
--- NOTE | 2017-06-28 01:14 | PN ---
Physical Exam: SUBJECTIVE: Patient seen and examined at bed side this morning. Complaining that he wants to eat and hasn't moved bowel since 8 days as he hasn't eaten. Denies abdominal pain, nausea, vomiting, chest pain, sob, cough, palpitation, fever, chills. No acute overnight events. Has NGT in place still draining dark greenish color fluid. OBJECTIVE: Vital Signs Period Temp Pulse Resp BP Sys/Juan Pulse Ox Last 24 Hr 97.6 F-98.5 F 55-60 18-18 105-145/54-74 95-98 GENERAL: The patient is awake, alert, and fully oriented, in no acute distress. HEAD: Normal with no signs of trauma. EYES: EOM intact, no pallor or icterus. ENT: Ears normal, moist mucous membranes. NECK: Supple. LUNGS: Breath sounds equal, crackles in the left lung no wheezes, no accessory muscle use. HEART: Regular rate and rhythm, S1, S2 without murmur, rub or gallop. ABDOMEN: Surgical scar jose elias, ventral hernia, Soft, nontender, nondistended, hyperactive bowel sounds, no guarding, no rebound, no hepatosplenomegaly, no masses. EXTREMITIES: 2+ pulses, warm, well-perfused, no edema. NEUROLOGICAL: No facial droop, Normal speech, gait not observed. PSYCH: Normal mood, normal affect. SKIN: Warm, dry, normal turgor, no rashes or lesions noted Laboratory Results - last 24 hr 06/27/17 06/27/17 06/27/17 12:15 12:15 12:15 WBC 11.2 H RBC 4.19 Hgb 13.3 Hct 39.1 MCV 93.4 MCH 31.7 MCHC 33.9 RDW 14.0 Plt Count 208 D MPV 7.9 Sodium 146 H Potassium 3.2 L Chloride 109 H Carbon Dioxide 25 Anion Gap 12 BUN 40 H D Creatinine 2.2 H Random Glucose 89 Calcium 7.6 L Magnesium 2.4 Cancelled Active Medications Generic Name Dose Route Start Last Admin Trade Name Freq PRN Reason Stop Dose Admin Amlodipine Besylate 10 mg 06/24/17 10:00 06/27/17 10:44 Norvasc - PO 10 mg DAILY DAVID Administration Atenolol 37.5 mg 06/24/17 10:06/27/17 10:43 Tenormin - PO 37.5 mg DAILY DAVID Administration Atorvastatin Calcium 40 mg 06/24/17 22:00 06/27/17 21:55 Lipitor - PO 40 mg HS DAVID Administration Finasteride 5 mg 06/24/17 10:00 06/27/17 10:43 Proscar - PO 5 mg DAILY DAVID Administration Folic Acid 1 mg 06/24/17 10:00 06/27/17 10:44 Folic Acid - PO 1 mg DAILY DAVID Administration Heparin Sodium (Porcine) 5,000 unit 06/24/17 06:00 06/27/17 21:55 Heparin - SQ 5,000 unit TID DAVID Administration CEFTRIAXONE 1 G/50 ML PREMIX 50 mls @ 100 mls/hr 06/24/17 21:00 06/27/17 10: 44 Ceftriaxone 1 Gm-D5w Bag IVPB 100 mls/hr DAILY DAVID Administration Azithromycin 500 mg/ Dextrose 250 mls @ 250 mls/hr 06/24/17 22:00 06/27/17 21 :55 IVPB 250 mls/hr DAILY@2200 DAVID Administration Sodium Chloride 1,000 mls @ 100 mls/hr 06/27/17 16:30 06/27/17 17:29 Normal Saline - IV 100 mls/hr ASDIR DAVID Administration Oseltamivir Phosphate 30 mg 06/26/17 05:00 06/26/17 05:35 Tamiflu - PO 07/01/17 04:59 30 mg Q48H DAVID Administration Pantoprazole Sodium 40 mg 06/27/17 22:00 06/27/17 21:55 Protonix - PO 40 mg BID DAVID Administration Sodium Bicarbonate 650 mg 06/24/17 10:00 06/27/17 10:44 Sodium Bicarbonate - PO 650 mg DAILY DAVID Administration Sucralfate 1 gm 06/25/17 14:00 06/27/17 21:55 Carafate Oral Suspension - PO 1 gm QID DAVID Administration Tamsulosin HCl 0.4 mg 06/24/17 08:30 06/27/17 10:43 Flomax - PO 0.4 mg DAILY@0830 DAVID Administration ASSESSMENT/PLAN: Patient is an 66 year old male with significant past medical history of Hypertension, Hyperlipidemia , BPH, CAD s/p [place] s/p stent x1, renal aneurysm s/p surgery who presented with Hiccups, SOB, cough and sputum production and was found to have CAP and Flu A # Flu A On Tamiflu 30mg PO Daily - day 4 (total of 5 doses to be given) # Abdominal wall hernia NPO Continue NGT, strict O's IV hydration # Community acquired pneumonia Afebrile, leukocytosis improving Continue IV Azithromycin 500mg daily and Ceftriaxone- Day 5 # Acute on chronic CKD likely due to decreased PO intake. Creatinine improving. IV Hydration Avoid nephrotoxic drugs # Hypokalemia K-3.2, repleted # Hiccups: due to SBO - resolved # Hypernatremia: Continue D5 with 1/2 NS # FEN IV D5 with 1/2 NS @ 100 mls/hr Electrolytes WNL NPO # Prophylaxis For DVT: On Heparin 5000 IU TID For GI: On IV Protonix 40mg BID # Code Status: Full Code # Dispo: Admitted in Med-Surg. Duration of stay unknown. Illness, Investigation and plan of care explained to the patient. He verbalized understanding. Case discussed with Dr. Lau.
[2017-06-28] MEDS: SODIUM CHLORIDE 1,000 ML IV SCH (02:15)
[2017-06-28] MEDS ORDERED: PT OWN MED DRAWER 7, Y5N ONE (06:15)
[2017-06-28] MEDS: OSELTAMIVIR PHOSPHATE 30 MG CAPSULE PO SCH (06:25)
[2017-06-28] MEDS: HEPARIN NA (PORCINE) 5,000 UNITS/ML 1ML VIAL SQ SCH ×2 (06:25→15:33)
[2017-06-28 08:37] LABS: HEMATOCRIT 37.2 % (35.4-49); HEMOGLOBIN 12.5 GM/dL (11.7-16.9); MCH 31.6 pg (25.7-33.7); MCHC 33.5 g/dl (32.0-35.9); MEAN CELL VOLUME 94.2 fl (80-96); MEAN PLT VOLUME 7.9 fl (7.5-11.1); PLATELET COUNT 202 K/MM3 (134-434); RBC 3.95 M/mm3 (4.00-5.60); RDW 14.4 % (11.9-15.9); WHITE BLOOD COUNT 11.4 K/mm3 (4.0-10.0)
[2017-06-28] MEDS: TAMSULOSIN HCL 0.4 MG CAP.ER.24H (FP) PO SCH (08:44)
[2017-06-28 09:06] LABS: ALBUMIN 2.4 g/dl (3.4-5.0); ALK PHOS 65 U/L (45-117); ANION GAP 9 (8-16); BILIRUBIN,TOTAL 0.9 mg/dL (0.2-1.0); BLOOD UREA NITROGEN 33 mg/dL (7-18); CHLORIDE 111 mmol/L (98-107); CO2 25 mmol/L (21-32); CREATININE 2.1 mg/dL (0.7-1.3); GLUCOSE,RANDOM 95 mg/dL (74-106); MAGNESIUM 2.1 mg/dL (1.8-2.4); POTASSIUM 3.3 mmol/L (3.5-5.1); SGOT/AST 12 U/L (15-37); SGPT/ALT 15 U/L (12-78); SODIUM 145 mmol/L (136-145); TOT PROT 5.2 g/dl (6.4-8.2)
[2017-06-28 09:19] LABS: CALCIUM 6.9 mg/dL (8.5-10.1)
[2017-06-28] MEDS: SUCRALFATE 1 GM/10 ML UNIT DOSE CUPS PO SCH ×2 (10:43→15:32)
--- NOTE | 2017-06-28 10:47 | PN ---
Progress Note (short form) - Note Progress Note: Attending Surgeon No c/o; tolerated liquids and had a BM and is passing flatus VSS AF abdomen-soft; non tender; non distended; hernia reducible. IMP: improved PLAN : advance to regular diet; outpatient f/u for hernia repair after acute URI /PNA resolved. Joseph Donaldson MD FACS
[2017-06-28] MEDS: CEFTRIAXONE 1 G/50 ML PREMIX 50 ML IVPB SCH (11:43)
[2017-06-28] MEDS: FINASTERIDE 5 MG TABLET (FP) PO SCH (11:44)
[2017-06-28] MEDS: amLODIPine BESYLATE 10 MG TABLET (FP) PO SCH (11:44)
[2017-06-28] MEDS: PANTOPRAZOLE 40 MG TABLET (FP) PO SCH (11:45)
[2017-06-28] MEDS: SODIUM BICARBONATE 650 MG TABLET PO SCH (11:45)
[2017-06-28] MEDS: FOLIC ACID 1 MG TABLET (FP) PO SCH (11:45)
[2017-06-28] MEDS ORDERED: POTASSIUM CHLORIDE TABS 20 MEQ TABLET.ER (FP) PO ONE (14:35)
[2017-06-28] MEDS ORDERED: AMOX TR/POT CLAV 875MG/125MG TABLETS (FP) PO ONE (14:36)
[2017-06-28] MEDS: ATENOLOL 25 MG TABLET (FP) PO SCH (14:54)
--- NOTE | 2017-06-28 14:58 | DS ---
Physical Examination Vital Signs: Vital Signs Temperature 98.5 F 06/28/17 06:00 Pulse Rate 52 L 06/28/17 06:00 Respiratory Rate 20 06/28/17 06:00 Blood Pressure 120/65 06/28/17 06:00 O2 Sat by Pulse Oximetry (%) 94 L 06/28/17 03:00 Findings/Remarks: NAD CV: RRR Lungs: CTAB Ext: no edema Lungs: crackles at middle and base of L lung Abd; soft, ND, mid line Abd wall hernias . hyperactive BS Labs: CBC, BMP 06/28/17 07:45 06/28/17 07:45 Discharge Summary Reason For Visit: PNEUMONIA INTRACTABLE HICCUPS Current Active Problems Bowel obstruction (Acute) Duodenitis (Acute) Esophagitis (Acute) Gastritis (Acute) Intractable hiccups (Acute) Partial small bowel obstruction (Acute) Pneumonia (Acute) Hospital Course: 66 y/o man with h/o HTN, HLD, BPH, CAD s/p PA s/p stentx1, renal aneurysm s/p surgery who presented with Hiccups, SOB, cough and sputum production. on admission he was found to have leukocytosis of 19, and on CT scan he was found ot have a lingular infiltrate along with dilated esophagus and stomach. he was treated for CAP, with ceftriaxone and azithro and WBC improved to 11K on dc . hi sresp sx improved and he is to cont with Augmentin x 2 more days to complete 7 days of treatment . he was also was found to have flu A , and finished a course of tamiflu His Hiccups were thought to be due to stomach distention form SBO. CT of abd showed transition point in abd wall hernia. He was treated conservatively with NGT and improved significantly. today he had BMs and tolerated regular diet He underwent EGD with Dr. Ferrer was found to have esophagitia, gastritis , and duodenitis with fragil bleeding mucosa in esophagus . he was started on PPi and carafate and will have to f/u with GI he was found to have MANJULA with cr above 3 , and was treated withIVF as he was thougth to be volume depleted. his cr is back to his base line 2.1. Condition at dc : improved f/u with GI, SX , and vascular and PCP blood work BMP, CBC needed in 7-10 days time spent 45 min Condition: Improved - Instructions Diet, Activity, Other Instructions: - please follow with your PCp in week - follow with Donnell Reed, for evaluation of your hernia as you will need hernia repair - follow with Dr. Melendez form GI - take smaller more frequent meals x 1 week - report any fever , chil, cough , or abdominal distention to your doctor - take antibiotics ( augmentin )x 2 more days . start tomorrow 5 am. - pepper picker your prescriptions today - take multivitamins that include calcium every day . - you need blood work in 7-10 days by your PCP - protonix and carafate are new meds for your inflamed stomach . - avoid motrin, advil and ibuprofen and similar meds as they irritate your stomach - please follow with your vascular surgeron for furhter evaluation of your aneurysm. need surveillance every 6 months - good luck Referrals: Joseph Donaldson MD [Staff Physician] - 1 Week Carl Melendez MD [Staff Physician] - 1 Week STAFF,NOT ON [Non Staff, Medical] - (Dr. hoyt phone [phone] x [phone]) Disposition: HOME - Home Medications Comprehensive Discharge Medication List: Ambulatory Orders Tamsulosin HCl [Flomax -] 0.4 mg PO DAILY 01/03/14 Amlodipine Besylate [Norvasc -] 10 mg PO DAILY 06/23/17 Atenolol [Tenormin -] 37.5 mg PO DAILY 06/23/17 Atorvastatin Ca [Lipitor] 40 mg PO HS 06/23/17 Finasteride [Proscar -] 5 mg PO DAILY 06/23/17 Folic Acid - 1 mg PO DAILY 06/23/17 Amoxicillin/Potassium Clav [Augmentin 875-125 Tablet] 1 each PO Q12H #4 tablet 06/28/17 Pantoprazole Sodium [Protonix -] 40 mg PO BID #60 tablet.ec 06/28/17 Sucralfate Oral Suspension [Carafate Oral Suspension -] 1 gm PO QID #30 ml 06/28 This patient is new to me today: No Emergency Visit: Yes ED Registration Date: 06/26/17 Care time: The patient presented to the Emergency Department on the above date and was hospitalized for further evaluation of their emergent condition. Critical Care patient: No - Discharge Referral Referred to [facility] Med [facility].C[facility] No
[2017-06-28 19:02] VITALS: BP 112/51; PULSE 60; TEMP 98.3
== END 2017-06-28 15:52 | disposition home or self-care (01) | DRG 388 ==
LOC: JER 14:16 → JERBED 06-24 03:09 → UNDOADMOB 06-24 03:38 → JERBED 06-24 03:38 → J8W 06-25 18:45 → OBSVTOIN 06-26 14:48
PROVIDERS: ADMIT Internal Medicine; ATTEND Internal Medicine
PROC: 0DD68ZX Extraction of Stomach, Via Natural or Artificial Opening Endoscopic, Diagnostic (ICD-10-PCS; 2017-06-25)
PROC: 0DD58ZX Extraction of Esophagus, Via Natural or Artificial Opening Endoscopic, Diagnostic (ICD-10-PCS; principal; 2017-06-25 11:30)
DX: K56.600 Partial intestinal obstruction, unspecified as to cause (principal); J18.9 Pneumonia, unspecified organism; N17.9 Acute kidney failure, unspecified; E87.0 Hyperosmolality and hypernatremia; I45.2 Bifascicular block; J09.X2 Influenza due to identified novel influenza A virus with other respiratory manifestations; I12.9 Hypertensive chronic kidney disease with stage 1 through stage 4 chronic kidney disease, or unspecified chronic kidney disease; N18.9 Chronic kidney disease, unspecified; K20.9 Esophagitis, unspecified; K29.80 Duodenitis without bleeding; K29.70 Gastritis, unspecified, without bleeding; R06.6 Hiccough; I25.2 Old myocardial infarction; E87.6 Hypokalemia; I71.4 Abdominal aortic aneurysm, without rupture; K43.9 Ventral hernia without obstruction or gangrene; Z95.5 Presence of coronary angioplasty implant and graft; I25.10 Atherosclerotic heart disease of native coronary artery without angina pectoris; E78.5 Hyperlipidemia, unspecified; Z87.891 Personal history of nicotine dependence; N40.1 Benign prostatic hyperplasia with lower urinary tract symptoms; R33.8 Other retention of urine; R12 Heartburn
CPT/HCPCS: 36415; 71045-TC; 71046-TC; 71250-TC; 74019-TC; 74176-TC; 76775-TC; 80048; 80053; 82248; 82436; 82550; 82570; 83735; 83880; 84133; 84300; 84484; 85025; 85027; 85610; 87040; 87070; 87077; 87205; 87804; 87899; 88305-TC; 88312-TC; 88342-TC; 93005; 93010; 93970-TC; 94760; 99285-25; G0378; J1644; Q9967

== ENCOUNTER 2019-06-11 13:28 | Emergency (ER) | payer OTHER ==
[2019-06-11 13:56] VITALS: TEMP 98; BMI 24.3
--- NOTE | 2019-06-11 14:03 | PDOC ---
History of Present Illness - General Chief Complaint: Jaundice Stated Complaint: SWELLING Time Seen by Provider: 06/11/19 13:59 History Source: Patient, Family Exam Limitations: No Limitations - History of Present Illness Initial Comments: 06/11/19 14:05 68YOM with h/o prior DVT (on coumadin and ASA, states does not get his INR checked regularly), HTN, HLD, MS s/p stent x1, renal aneurysm s/p surgery, and BPH, who p/w jaundice and diffuse extremity bruising, "gassy" abdominal discomfort, abdominal swelling, pedal edema, generalized weakness, tiredness, black stool, and decreased appetite all worsening x4 days. The patient has EtOH overuse disorder per the daughter, but the patient denies having been drinking heavily lately. Patient is a poor historian. Denies recent travel, or hepatitis. Denies f/c/n/v. Past History - Past Medical History Allergies/Adverse Reactions: Allergies Allergy/AdvReac Type Severity Reaction Status Date / Time tetracycline Allergy Severe Swelling Verified 06/25/17 13:29 Home Medications: Ambulatory Orders Tamsulosin HCl [Flomax -] 0.4 mg PO DAILY 01/03/14 Amlodipine Besylate [Norvasc -] 10 mg PO DAILY 06/23/17 Atenolol [Tenormin -] 25 mg PO DAILY 06/23/17 Atorvastatin Ca [Lipitor] 40 mg PO HS 06/23/17 Folic Acid - 1 mg PO DAILY 06/23/17 Finasteride 5 mg PO DAILY 06/11/19 Furosemide 40 mg PO DAILY 06/11/19 Cardiac Disorders: Yes (CAD) COPD: No Disorders: Yes (BPH) HTN: Yes Hypercholesterolemia: Yes - Surgical History Cardiac Surgery: Yes (stent) - Immunization History Immunization Up to Date: No - Psycho Social/Smoking Cessation Hx Smoking History: Unknown if ever smoked Have you smoked in the past 12 months: No If you are a former smoker, when did you quit?: 08/2015 Information on smoking cessation initiated: No Hx Alcohol Use: No Drug/Substance Use Hx: No Substance Use Type: None Hx Substance Use Treatment: No Review of Systems - Review of Systems Able to Perform ROS?: Yes Comments:: GEN: generalized weakness, malaise HEENT: no ear pain, congestion, sore throat, rhinorrhea, nosebleed, vision change, or eye pain CV: no chest pain, palpitations, lightheadedness, syncope, edema, or exercise intolerance RESP: no cough, wheezing, or SOB GI: diarrhea, no abdominal pain, nausea, vomiting, constipation, appetite change , or white/black/bloody stool : no dysuria, hematuria, frequency, incontinence, retention, pruritis, bleeding, or discharge MSK: no muscle weakness or pain, no muscle wasting, no joint swelling or pain NEURO: no headache, seizure, vertigo, imbalance, numbness, tingling, focal weakness, or difficulty walking/talking PSYCH: confusion, no SI, HI, or substance use SKIN: unexplained bruises, jaundice, no rash, or cuts ROS otherwise negative except as noted in HPI *Physical Exam - Vital Signs Last Vital Signs Temp Pulse Resp BP Pulse Ox 98.0 F 84 18 143/83 98 06/11/19 13:30 06/11/19 13:30 06/11/19 13:30 06/11/19 13:30 06/11/19 13:30 - Physical Exam GENERAL: ill-appearing, latency answering questions, obviously jaundiced, able to answer A/O x4 questions with some difficulty, family at bedside HEENT: PERRLA, EOMI, a bit dry mucous membranes, NECK/BACK: no midline ttp, no spinal stepoff or deformity, no hematoma, full ROM , neck supple CARDIOVASCULAR: regular rate/rhythm, normal S1S2, no MGR, strong peripheral pulses, capillary refill <2 seconds, extremities wwp, no edema LUNGS/RESPIRATORY: no respiratory distress, CTAB GI/ABDOMEN: symmetric [id number], normoactive BS, soft, distended, mild vague ttp, no midline pulsatile masses, large well healed prior laparotomy scar Rectal: +dark watery stool, no hemorrhoids : no CVA tenderness EXTREMITIES: no muscle atrophy, no acute deformity SKIN: multiple scattered ecchymoses to extremities and trunk with varied ages and sizes, +minor scabbed abrasions, skin warm and dry, +jaundice NEUROLOGICAL: GCS 15, CN II-XII grossly intact, 5/5 strength proximally and distally, no facial droop ED Treatment Course - LABORATORY CBC & Chemistry Diagram: 06/11/19 14:00 06/11/19 14:00 - RADIOLOGY Radiology Studies Ordered: Category Date Time Status CXRPORT [CHEST X-RAY PORTABLE*] [RAD] Stat Radiology 06/11/19 13:55 Ordered Medical Decision Making - Medical Decision Making 68YOM presents with jaundice, confusion, multiple bruises. Initial Vital Signs Temp Pulse Resp BP Pulse Ox 98.0 F 84 18 143/83 98 06/11/19 13:30 06/11/19 13:30 06/11/19 13:30 06/11/19 13:30 06/11/19 13:30 Exam: As noted in Physical Exam section. DDX IBNLT: hepatitis d/t viral (ABCDE), toxins (e.g. alcohol/acetaminophen/ cap mushroom), autoimmune, biliary tract obstruction, fatty liver disease , cirrhosis (e.g. h/o EtOH dependence or HCC), SBP, hemolysis W/U ordered: Labs, EKG, CXR, CT A/P, CTH EKG: Reviewed; results as noted in ECG Review section. Laboratory Tests 06/11/19 06/11/19 06/11/19 14:00 14:00 14:00 WBC 9.3 RBC 3.13 L Hgb 10.6 L Hct 31.3 L D MCV 100.0 H MCH 33.9 H MCHC 33.9 RDW 15.6 Plt Count 49 L D MPV 9.0 D Absolute Neuts (auto) 7.9 Neutrophils % 85.5 H Neutrophils % (Manual) 81.6 Band Neutrophils % 0.0 Lymphocytes % 9.0 Lymphocytes % (Manual) 9.7 Monocytes % 4.9 Monocytes % (Manual) 9 Eosinophils % 0.2 Eosinophils % (Manual) 0.0 Basophils % 0.4 Basophils % (Manual) 0.0 Myelocytes % (Man) 0 Promyelocytes % (Man) 0 Blast Cells % (Manual) 0 Nucleated RBC % 2 H Metamyelocytes 0 Hypochromia 0 Platelet Estimate Decreased Platelet Comment No clumping noted Polychromasia 0 Poikilocytosis 2+ Anisocytosis 1+ Microcytosis 1+ Macrocytosis 0 Ovalocytes 1+ PT with INR INR Sodium Potassium Chloride Carbon Dioxide Anion Gap BUN Creatinine Est GFR (CKD-EPI)AfAm Est GFR (CKD-EPI)NonAf Random Glucose Calcium Total Bilirubin AST ALT Alkaline Phosphatase Ammonia 138.20 H Creatine Kinase 395 H Creatine Kinase Index 0.4 CK-MB (CK-2) 1.7 Troponin I 0.70 H* Total Protein Albumin Lipase 2951 H Urine Color Urine Appearance Urine pH Ur Specific [place] Urine Protein Urine Glucose (UA) Urine Ketones Urine Blood Urine Nitrite Urine Bilirubin Urine Urobilinogen Ur Leukocyte Esterase Urine WBC (Auto) Urine RBC (Auto) Urine Casts (Auto) U Epithel Cells (Auto) Urine Bacteria (Auto) Stool Occult Blood Influenza A (Rapid) Influenza B (Rapid) Blood Type Antibody Screen 06/11/19 06/11/19 06/11/19 14:00 14:00 14:00 WBC RBC Hgb Hct MCV MCH MCHC RDW Plt Count MPV Absolute Neuts (auto) Neutrophils % Neutrophils % (Manual) Band Neutrophils % Lymphocytes % Lymphocytes % (Manual) Monocytes % Monocytes % (Manual) Eosinophils % Eosinophils % (Manual) Basophils % Basophils % (Manual) Myelocytes % (Man) Promyelocytes % (Man) Blast Cells % (Manual) Nucleated RBC % Metamyelocytes Hypochromia Platelet Estimate Platelet Comment Polychromasia Poikilocytosis Anisocytosis Microcytosis Macrocytosis Ovalocytes PT with INR 15.50 H INR 1.31 H Sodium 143 Potassium 3.5 Chloride 103 Carbon Dioxide 26 Anion Gap 15 BUN 99.7 H Creatinine 4.6 H Est GFR (CKD-EPI)AfAm 13.90 Est GFR (CKD-EPI)NonAf 12.00 Random Glucose 154 H Calcium 8.4 L Total Bilirubin 11.3 H AST 895 H ALT 372 H Alkaline Phosphatase 715 H Ammonia Creatine Kinase Creatine Kinase Index CK-MB (CK-2) Troponin I Total Protein 5.2 L Albumin 2.3 L Lipase Cancelled Urine Color Urine Appearance Urine pH Ur Specific [place] Urine Protein Urine Glucose (UA) Urine Ketones Urine Blood Urine Nitrite Urine Bilirubin Urine Urobilinogen Ur Leukocyte Esterase Urine WBC (Auto) Urine RBC (Auto) Urine Casts (Auto) U Epithel Cells (Auto) Urine Bacteria (Auto) Stool Occult Blood Influenza A (Rapid) Influenza B (Rapid) Blood Type A POSITIVE Antibody Screen Negative 06/11/19 06/11/19 06/11/19 14:50 15:20 15:30 WBC RBC Hgb Hct MCV MCH MCHC RDW Plt Count MPV Absolute Neuts (auto) Neutrophils % Neutrophils % (Manual) Band Neutrophils % Lymphocytes % Lymphocytes % (Manual) Monocytes % Monocytes % (Manual) Eosinophils % Eosinophils % (Manual) Basophils % Basophils % (Manual) Myelocytes % (Man) Promyelocytes % (Man) Blast Cells % (Manual) Nucleated RBC % Metamyelocytes Hypochromia Platelet Estimate Platelet Comment Polychromasia Poikilocytosis Anisocytosis Microcytosis Macrocytosis Ovalocytes PT with INR INR Sodium Potassium Chloride Carbon Dioxide Anion Gap BUN Creatinine Est GFR (CKD-EPI)AfAm Est GFR (CKD-EPI)NonAf Random Glucose Calcium Total Bilirubin AST ALT Alkaline Phosphatase Ammonia Creatine Kinase Creatine Kinase Index CK-MB (CK-2) Troponin I Total Protein Albumin Lipase Urine Color Dk yellow Urine Appearance Turbid Urine pH 5.0 Ur Specific [place] 1.016 Urine Protein 2+ H Urine Glucose (UA) Negative Urine Ketones Negative Urine Blood 2+ H Urine Nitrite Negative Urine Bilirubin 2+ H Urine Urobilinogen 1.0 Ur Leukocyte Esterase Negative Urine WBC (Auto) 3 Urine RBC (Auto) 10.1 Urine Casts (Auto) 7 U Epithel Cells (Auto) 2.5 Urine Bacteria (Auto) 295.8 Stool Occult Blood Positive Influenza A (Rapid) Negative Influenza B (Rapid) Negative Blood Type Antibody Screen RAD/CHEST X-RAY PORTABLE* Chest: Check for pneumoperitoneum. A single view of the chest has been submitted. There is a scoliosis with convexity to the left, weak inspiration with large heart, prominent knob and normal alejandro. There is an elevated right hemidiaphragm. There may be some atelectasis or infiltrate at the left base. There is no sign of a gross pneumoperitoneum. If one is concerned about a pneumoperitoneum and further imaging with CT or abdomen series may be of help. CT/HEAD CT WITHOUT CONTRAST History: Altered mental status Comparison January 03, 2014 CT Head without contrast Findings Mild cerebral atrophy and mild chronic deep white matter periventricular ischemic change Old left frontal infarct. There is no evidence of any intracerebral hemorrhage, mass lesion or midline shift. There is no evidence of an acute subdural hematoma. No CT evidence of acute infarct. No fractures are identified. Impression: No acute bleed or mass or fracture.No CT evidence of acute infarct. PRELIMINARY REPORT PROVIDED BY RADIOLOGIST CYBER SECURITY SYSTEMS ENGINEER CT/ABDOMEN PELVIS CT W/O CONTR History: Abdominal pain CT Scan of abdomen and pelvis without oral or IV contrast COMPARISON: June 25, 2017 FINDINGS: There is a 3.0 cm left lower lobe well-circumscribed mass not seen previously or perhaps increased in size Cardiomegaly Again noted is a small fat-containing ventral hernia However subsequent to the prior study the more inferior located ventral hernia appears to been surgically repaired. At the surgical site there are inflammatory changes both the anterior and posterior to the abdominal wall and a segment of small bowel adjacent to the abdominal wall appears to be inflamed. Small amount of free fluid is seen adjacent to the right of hepatic lobe and possibly in the right colic gutter The liver, spleen, pancreas and adrenal glands are unremarkable. No gallstones are identified. There is no evidence of retroperitoneal lymphadenopathy or abdominal aortic aneurysm. Again noted is left renal atrophy. There are several cysts of the right kidney which can be confirmed by sonography The prostate is slightly enlarged The urinary bladder is distended. Multiple diverticula of the sigmoid and left colon without evidence of acute diverticulitis There is no evidence of bowel obstruction. There are no inflammatory changes of the colon. The appendix is not identified No fluid collections are identified. Impression: 3.0 cm mass left lower lobe. Inflammatory changes in the soft tissues anterior and posterior to the lower abdominal wall and posteriorly it appears to involve segment of small bowel which may be inflamed. Recommend clinical correlation Other comments as noted above PRELIMINARY REPORT PROVIDED BY RADIOLOGIST CYBER SECURITY SYSTEMS ENGINEER 06/11/19 17:02 The Pt is unsafe for discharge at this time. They require further hospital observation, workup, and treatment. They need evaluation at a trauma center given the mechanism and w/u results. Transfer center called and connected with admitting provider. Pt to be transferred to: [facility] Pt accepted in transfer to: Dr. Renee Patient/family informed of plan for transfer and they agree with this plan. Transfer paperwork completed and signed by all indicated parties. Vital Signs Temperature 98.0 F 06/11/19 17:35 Pulse Rate 76 06/11/19 17:35 Respiratory Rate 20 06/11/19 17:35 Blood Pressure 124/80 06/11/19 17:35 O2 Sat by Pulse Oximetry (%) 95 06/11/19 17:30 EMS crew arrives and transfers Pt to ambulance without issue. Discharge - Discharge Information Problems reviewed: Yes Clinical Impression/Diagnosis: MANJULA (acute kidney injury), Elevated troponin Liver failure Qualifiers: Liver failure chronicity: acute Hepatic coma status: without hepatic coma Qualified Code(s): K72.00 - Acute and subacute hepatic failure without coma GI bleed Qualifiers: GI bleed type/associated pathology: melena Qualified Code(s): K92.1 - Melena Anemia Qualifiers: Anemia type: unspecified type Qualified Code(s): D64.9 - Anemia, unspecified Pancreatitis Qualifiers: Chronicity: acute Pancreatitis type: unspecified pancreatitis type Acute pancreatitis complication: unspecified Qualified Code(s): K85.90 - Acute pancreatitis without necrosis or infection, unspecified Condition: Guarded Disposition: TRANSFER ACUTE CARE/OTHER HOSP - Follow up/Referral - Patient Discharge Instructions - Post Discharge Activity - Transfer to Acute Care Facility Receiving Facility Name: [facility] Accepting Physician:: Thanh Renee
[2019-06-11 14:30] LABS: BASO % 0.4 % (0-2.0); EOS % 0.2 % (0-4.5); HEMATOCRIT 31.3 % (35.4-49); HEMOGLOBIN 10.6 GM/dL (11.7-16.9); MCH 33.9 pg (25.7-33.7); MCHC 33.9 g/dl (32.0-35.9); MONO % 4.9 % (3.8-10.2); NEUT % 85.5 % (42.8-82.8); PLATELET COUNT 49 K/MM3 (134-434); RBC 3.13 M/mm3 (4.00-5.60); RDW 15.6 % (11.9-15.9); WHITE BLOOD COUNT 9.3 K/mm3 (4.0-10.0)
[2019-06-11] MEDS ORDERED: PANTOPRAZOLE SODIUM 40 MG VIAL IVPUSH ONE (14:40)
--- NOTE | 2019-06-11 14:40 | EKG ---
Test Reason : Blood Pressure : / mmHG Vent. Rate : 084 BPM Atrial Rate : 084 BPM P-R Int : 114 ms QRS Dur : 124 ms QT Int : 444 ms P-R-T Axes : 019 -34 119 degrees QTc Int : 524 ms SINUS RHYTHM WITH PREMATURE ATRIAL COMPLEXES LEFT AXIS DEVIATION RIGHT BUNDLE BRANCH BLOCK LEFT VENTRICULAR HYPERTROPHY WITH REPOLARIZATION ABNORMALITY ABNORMAL ECG WHEN COMPARED WITH ECG OF 23-JUN-2017 18:01, PREMATURE ATRIAL COMPLEXES ARE NOW PRESENT INVERTED T WAVES HAVE REPLACED NONSPECIFIC T WAVE ABNORMALITY IN ANTERIOR LEADS QT HAS LENGTHENED Confirmed by MD SHAWNA, SEBASTIAN ([id number]) on 06/11/2019 2:40:10 PM Referred By: Confirmed By:SEBASTIAN MATOS MD
[2019-06-11] MEDS ORDERED: PANTOPRAZOLE SODIUM 80 MG in SODIUM CHLORIDE 100 ML IVPB SCH (14:45)
[2019-06-11] MEDS ORDERED: PANTOPRAZOLE SODIUM 40 MG VIAL ONE ×2 (14:47)
[2019-06-11 14:53] LABS: INR 1.31 (0.83-1.09); PROTHROMBIN TIME (PATIENT) 15.5 SEC (9.7-13.0)
[2019-06-11 15:32] LABS: ALBUMIN 2.3 g/dl (3.4-5.0); BILIRUBIN,TOTAL 11.3 mg/dL (0.2-1); BLOOD UREA NITROGEN 99.7 mg/dL (7-18); CALCIUM 8.4 mg/dL (8.5-10.1); CREATININE 4.6 mg/dL (0.55-1.3); POTASSIUM 3.5 mmol/L (3.5-5.1); TOT PROT 5.2 g/dl (6.4-8.2)
[2019-06-11 15:58] LABS: EPI CELLS 2.5 /HPF (0-5/HPF); HYALINE CASTS 7 /lpf (0-8); URINE APPEARANCE TURBID; URINE BILIRUBIN 2+ (NEGATIVE); URINE COLOR DK YELLOW; URINE GLUCOSE (UA) NEGATIVE (NEGATIVE); URINE KETONE NEGATIVE (NEGATIVE); URINE LEUK ESTERASE NEGATIVE (NEGATIVE); URINE NITRITE NEGATIVE (NEGATIVE); URINE PROTEIN 2+ (NEGATIVE); URINE WBC 3 /hpf (0-5)
--- NOTE | 2019-06-11 16:38 | PDOC ---
Documentation entered by Stefanie Wilson SCRIBE, acting as scribe for Kelsi Cruz MD. Kelsi Cruz MD: This documentation has been prepared by the Steve hayes Xhesika, SCRIBE, under my direction and personally reviewed by me in its entirety. I confirm that the documentation accurately reflects all work, treatment, procedures, and medical decision making performed by me. Attending Attestation - Resident Resident Name: Mariann Beckham - [facility] HPI: 06/11/19 14:37 The patient is a 68 year old male with a significant PMH of DVT (on coumadin and ASA, does not get his INR checked regularly), HTN, HLD, [place] s/p stent, renal aneurysm, and BPH who presents to the emergency department for generalized weakness, jaundice, "gassy" abdominal discomfort, and pedal edema associated with increased diffuse extremity bruising x 4 days. Patients girlfriend at bedside reports the patient has been endorsing decreased appetite, SOB, dry cough, and dark stools. Pt states he had 3 episodes of dark stools today. Daughter states, patient has an extensive history of overuse alcohol disorder, however, patient and girlfriend at bedside state patient has not drank in the past 4-5 months. However pt admits to taking a cup of wine on Angelika jimmy which he said helped him to feel better, pt was vague about whta was bothering him on angelika jimmy. The patient denies chest pain, headache and dizziness. Denies fever, chills, nausea, vomiting, diarrhea and constipation. Denies dysuria, frequency, urgency and hematuria. Allergies: tetracycline 06/11/19 16:02 - Physicial Exam PE: 06/11/19 14:39 GENERAL: The patient is awake, alert, and oriented during my exam but orientation waxing and wanning in ED.Was oriented to year and month when teletypewriter operator examined him but was disoriented to year when resident first examined pt., Pt is also ill appearing and jaunndiced but was not in acute distress during my exam.Pt complaining of just feeling tired. Stated he came to hospital because family insisted and he wanted to feel better plus he has been having dark/black stools. HEAD: Normocephalic, atraumatic. EYES: extraocular movements intact, sclera icteric, conjunctiva injected. ENT: Normal voice, moist mucous membranes. NECK: Normal range of motion, supple without lymphadenopathy, JVD, or masses. LUNGS: Breath sounds equal, clear to auscultation bilaterally. No wheezes, no crackles, no rales. HEART: Regular rate and rhythm, normal S1 and S2 without murmur, rub or gallop. ABDOMEN: Soft, slightly distended, pt c/o left sided abdominal discomfort along with rt lower quadrant discomfort on my exam.Pt apparently had ruq discomfort on resident's exam, pt may also have some mild ascites. EXTREMITIES:+ 2+ pitting edema up to knees.No erythema, or tenderness. NEUROLOGICAL: Alert, Normal Mood/Affect, Motor Strength 5/5. No facial asymmetry, Normal speech SKIN: + jaundice. + extensive bruising greater on arms, abdomen and back. 06/11/19 20:10 - Medical Decision Making 06/11/19 16:18 68 y/o male here in ED for evaluation because he is passing black stools , his skin is becoming yellow, he is intermittently confused and feeling weak. Pt with h/o of ETOH abuse last drink was on [employer] small cup of wine as per Patient. Pt noted to have elevated LFT'S, elevated lipase, mildly elevated troponin, black stools with a current hgb of 10 , along with an elevated ammonia level. Pt requires admission to hospital monitored bed. With serial troponins, pt denies chest pain, elevated troponin may be related to acute renal failure,pt's current creatinine 4.6 up from baseline creatine around 2.3. GI consulted for acute pancreatitis and abnormal LFT"S, cardiology also consulted. Ct of head and abdomen to evaluate.altering mental status, abdominal pain and abnormal lft's . Case discussed with GI recommends transfer to a higher level of care as pt currently has multi organ system failure(acute renal failure, acute liver injury,GI bleed,positive troponin).Pt is clinically stable at time of this note but is at risk for sudden deterioration of condition. Transfer to a tertiary facility is a reasonable recommendation at this time, resident to initiate transfer process. 06/11/19 16:32 06/11/19 20:17
[2019-06-11] MEDS ORDERED: PIPERACILLIN/TAZOB 4.5 GM 4.5 GM in DEXTROSE 5%-WATER 100 ML IVPB ONE (17:12)
[2019-06-11] MEDS ORDERED: PIPERACILLIN/TAZOB 3.375 GM 3.375 GM in DEXTROSE 5%-WATER - 50 ML IVPB ONE (17:20)
[2019-06-11 17:23] LABS: URINE RBC 10.1 /hpf (0-4)
[2019-06-11] MEDS ORDERED: PIPERACILLIN/TAZOB 3.375 GM 3.375 GM/50 ML BAG IVPB ONE (17:23)
[2019-06-11 17:24] LABS: URINE BACTERIA 295.8 /hpf (NEGATIVE)
[2019-06-11 17:37] LABS: ANISOCYTOSIS 1+; MACROCYTOSIS 0; OVALOCYTE 1+
[2019-06-11 17:39] LABS: PLATELET ESTIMATE DECREASED
[2019-06-11 17:40] VITALS: BP 124/80; PULSE 76
[2019-06-13 20:11] LABS: HEP B CORE AB, TOT Negative (Negative)
== END 2019-06-11 18:00 | disposition short-term general hospital (02) ==
LOC: JER 13:28
PROC: 3E03329 Introduction of Other Anti-infective into Peripheral Vein, Percutaneous Approach (ICD-10-PCS; principal; 2019-06-11)
PROC: 3E033GC Introduction of Other Therapeutic Substance into Peripheral Vein, Percutaneous Approach (ICD-10-PCS; 2019-06-11)
PROC: 3E033GC Introduction of Other Therapeutic Substance into Peripheral Vein, Percutaneous Approach (ICD-10-PCS; 2019-06-11)
DX: K72.90 Hepatic failure, unspecified without coma (principal); N17.9 Acute kidney failure, unspecified; K85.90 Acute pancreatitis without necrosis or infection, unspecified; K92.1 Melena; D64.9 Anemia, unspecified; R74.8 Abnormal levels of other serum enzymes; I25.10 Atherosclerotic heart disease of native coronary artery without angina pectoris; I13.11 Hypertensive heart and chronic kidney disease without heart failure, with stage 5 chronic kidney disease, or end stage renal disease; N18.6 End stage renal disease; Z95.5 Presence of coronary angioplasty implant and graft; I25.2 Old myocardial infarction; Z86.718 Personal history of other venous thrombosis and embolism; Z79.01 Long term (current) use of anticoagulants; Z79.82 Long term (current) use of aspirin; N40.0 Benign prostatic hyperplasia without lower urinary tract symptoms
CPT/HCPCS: 36415; 70450-TC; 71045-TC-FY; 74176-TC; 80053; 81003; 82140; 82272; 82550; 82553; 83010; 83690; 84484; 85025; 85610; 86704; 86706; 86707; 86708; 86709; 86850; 86900; 86901; 87086; 87186; 87340; 87522; 87804; 93005; 93010; 96365; 96375; 99285-25